=== PATIENT | male | born 1945 | race Caucasian/White ===

== ENCOUNTER 2018-04-29 19:33 | Inpatient (IN) | payer MEDICARE, MEDICAID ==
[~2018-04-29] VITALS: Ht 167.6 cm; Wt 81.8 kg
[~2018-04-29 19:33] MED LIST: AMLO5TAB4 PO; ASPI-1265 PO; ATOR10TA87 PO; GABA-530 PO; LOSA1TAB41 PO; METF1000 PO; METO25TA6 PO; PIOG45TA5 PO
[2018-04-29] MEDS ORDERED: benzonatate 100mg capsule PO ONE (20:20)
[2018-04-29 20:36] LABS: BASOPHILS % (AUTO) 0.4 % (0-1); EOSINOPHILS # (AUTO) 0.2 X10'3 (0-0.9); EOSINOPHILS % (AUTO) 3.1 % (0-6); HEMATOCRIT 34.1 % (42.0-52.0); HEMOGLOBIN 11.1 g/dl (14.0-17.9); LYMPHOCYTES % (AUTO) 15.4 % (21-51); MEAN CORPUSCULAR HGB CONC 32.7 % (33.0-36.5); MEAN CORPUSCULAR VOLUME 88.7 FL (78-98); MEAN PLATELET VOLUME 6.7 FL (7.4-10.4); MONOCYTES # (AUTO) 0.7 X10'3 (0-0.9); MONOCYTES % (AUTO) 10.5 % (2-12); NEUTROPHILS # (AUTO) 4.4 X10'3 (1.8-7.7); NEUTROPHILS % (AUTO) 70.6 % (42-75); PLATELET COUNT 235 X10'3 (140-440); RED BLOOD COUNT 3.84 X10'6 (4.70-6.10); RED CELL DISTRIBUTION WIDTH 15.2 % (11.5-14.5); WHITE BLOOD COUNT 6.2 X10'3 (4.5-11.0)
[2018-04-29 20:51] LABS: ALBUMIN 2.2 G/DL (3.4-5.0); ANION GAP 8 (8-16); BILIRUBIN,TOTAL 0.2 MG/DL (0.1-1.0); BLOOD UREA NITROGEN 35 MG/DL (7-18); BUN/CREATININE RATIO 14.8 (5.4-32.0); CALCIUM 8.1 MG/DL (8.5-10.1); CHLORIDE 106 MMOL/L (99-107); CREATININE 2.36 MG/DL (0.60-1.10); GLUCOSE 146 MG/DL (70-104); POTASSIUM 4.4 MMOL/L (3.5-5.1); SODIUM 138 MMOL/L (135-145); TOTAL PROTEIN 5.7 G/DL (6.4-8.2); eGFR 27 ML/MIN
[2018-04-29 20:52] LABS: ALANINE AMINOTRANSFERASE 21 U/L (12-78); ALBUMIN/GLOBULIN RATIO 0.6 (1.1-1.5); ALKALINE PHOSPHATASE 133 IU/L (46-116); ASPARTATE AMINO TRANSFERASE 17 U/L (10-37)
[2018-04-29 20:55] LABS: D-DIMER 1.44 MG/L FEU (0-0.50); INR 0.9 INR; PARTIAL THROMBOPLASTIN TIME 27 SECONDS (22-32); PROTHROMBIN TIME 9.5 SECONDS (9.0-12.0)
[2018-04-29] MEDS ORDERED: normal saline 1000ml 1,000 ML IV ONE (21:00)
[2018-04-29] MEDS ORDERED: furosemide 10 MG/1 ML 10ml inj IV ONE (21:05)
[2018-04-29] MEDS ORDERED: nitroGLYCERIN-Tridil 50MG/D5W 250 ML IV ONE (21:40)
[2018-04-29] MEDS ORDERED: normal saline 1000ml 1,000 ML IV SCH (22:36)
[2018-04-29] MEDS ORDERED: HYDROcodone/acetaminophen 5mg/325mg tablet PO PRN (22:40)
[2018-04-29] MEDS ORDERED: acetaminophen 650mg rectal suppository RC PRN (22:40)
[2018-04-29] MEDS ORDERED: mag hydrox/Alum hydrox/simeth 30ml oral suspension PO PRN (22:40)
[2018-04-29] MEDS ORDERED: acetaminophen 325mg tablet PO PRN ×2 (22:40)
[2018-04-29] MEDS ORDERED: ondansetron/PF 4mg/2ml inj IV PRN (22:40)
[2018-04-29] MEDS ORDERED: bisacodyl 10mg suppository rectal RC PRN (22:40)
[2018-04-29] MEDS ORDERED: magnesium hydroxide 30ml (MOM) UD suspension PO PRN (22:40)
[2018-04-29] MEDS ORDERED: metoclopramide 5 mg/ml inj IV PRN (22:40)
[2018-04-29] MEDS ORDERED: diphenhydrAMINE 50 mg/ml inj IV PRN (22:40)
[2018-04-29] MEDS ORDERED: morphine 2 MG/ML inj. syringe IV PRN ×2 (22:40)
[2018-04-29] MEDS ORDERED: diphenhydrAMINE 25mg capsule PO PRN (22:40)
[2018-04-29] MEDS ORDERED: dextrose ORAL solution 15 GM/59 ML bottle PO PRN ×2 (22:45)
[2018-04-29] MEDS ORDERED: glucagon, human recombinant 1mg kit SUBCUT PRN (22:45)
[2018-04-29] MEDS ORDERED: nitroGLYCERIN-Tridil 50MG/D5W 250 ML IV SCH (22:45)
[2018-04-29] MEDS ORDERED: dextrose 50%-water 50ml dispensing syringe IV PRN ×2 (22:45)
[2018-04-29] MEDS ORDERED: insulin Lispro (HumaLOG) vial - multi-dose SQ SCH (22:45)
[2018-04-29] MEDS ORDERED: MESSAGE TO PHARMACY PO ONE (22:45)
[2018-04-29 23:08] LABS: LIPASE 267 U/L (73-393); MAGNESIUM 1.9 MG/DL (1.5-2.4); PHOSPHORUS 4.1 MG/DL (2.3-4.5)
[2018-04-29] MEDS: HYDROcodone/acetaminophen 10/325mg tab PO PRN (23:59)
[2018-04-30] VITALS (8 sets, daily range): BP systolic 101–169; BP diastolic 77–121
[2018-04-30] MEDS: temazepam 15mg capsule PO PRN ×2 (00:46→21:18)
[2018-04-30 02:34] LABS: BASOPHILS % (AUTO) 0.7 % (0-1); EOSINOPHILS # (AUTO) 0.2 X10'3 (0-0.9); EOSINOPHILS % (AUTO) 2.8 % (0-6); HEMATOCRIT 29.8 % (42.0-52.0); HEMOGLOBIN 9.9 g/dl (14.0-17.9); LYMPHOCYTES # (AUTO) 1.3 X10'3 (1.1-4.8); LYMPHOCYTES % (AUTO) 18.1 % (21-51); MEAN CORPUSCULAR HEMOGLOBIN 29.2 PG (27.0-31.0); MEAN CORPUSCULAR HGB CONC 33.2 % (33.0-36.5); MEAN PLATELET VOLUME 6.7 FL (7.4-10.4); MONOCYTES # (AUTO) 0.8 X10'3 (0-0.9); MONOCYTES % (AUTO) 11.3 % (2-12); NEUTROPHILS # (AUTO) 4.6 X10'3 (1.8-7.7); NEUTROPHILS % (AUTO) 67.1 % (42-75); PLATELET COUNT 225 X10'3 (140-440); RED BLOOD COUNT 3.39 X10'6 (4.70-6.10); RED CELL DISTRIBUTION WIDTH 14.6 % (11.5-14.5); WHITE BLOOD COUNT 6.9 X10'3 (4.5-11.0)
[2018-04-30 02:50] LABS: ALANINE AMINOTRANSFERASE 19 U/L (12-78); ALBUMIN/GLOBULIN RATIO 0.6 (1.1-1.5); ALKALINE PHOSPHATASE 112 IU/L (46-116); ANION GAP 11 (8-16); ASPARTATE AMINO TRANSFERASE 16 U/L (10-37); BILIRUBIN,TOTAL 0.2 MG/DL (0.1-1.0); BLOOD UREA NITROGEN 35 MG/DL (7-18); BUN/CREATININE RATIO 14.5 (5.4-32.0); CALCIUM 7.9 MG/DL (8.5-10.1); CHLORIDE 107 MMOL/L (99-107); CREATININE 2.42 MG/DL (0.60-1.10); GLUCOSE 140 MG/DL (70-104); SODIUM 140 MMOL/L (135-145); TOTAL CARBON DIOXIDE 21.8 MMOL/L (24-32); TOTAL PROTEIN 5.1 G/DL (6.4-8.2); eGFR 27 ML/MIN
[2018-04-30 02:54] LABS: CHOL/HDL RATIO 3.4 (0.00-4.99); CHOLESTEROL 202 MG/DL (0-200); HDL CHOLESTEROL 60 MG/DL (35-60); LDL CHOLESTEROL 123 MG/DL (50-100); TRIGLYCERIDES 91 MG/DL (20-135)
[2018-04-30] MEDS: HYDROcodone/acetaminophen 10/325mg tab PO PRN (07:48)
[2018-04-30] MEDS: docusate sod 100mg capsule PO SCH ×2 (07:50→20:00)
[2018-04-30] MEDS ORDERED: furosemide 10 MG/1 ML 10ml inj IV SCH (08:00)
[2018-04-30] MEDS ORDERED: enoxaparin 40mg/0.4ml syringe SQ SCH (08:00)
[2018-04-30] MEDS ORDERED: potassium Cl 20 mEq SR tablet PO PRN ×2 (10:25)
[2018-04-30] MEDS ORDERED: magnesium 4gm in 100ml NS 100 ML IV PRN (10:25)
[2018-04-30] MEDS ORDERED: magnesium Cl slow-release 64mg tablet PO PRN (10:25)
[2018-04-30] MEDS ORDERED: potassium Cl 40MEQ/NS 500ml 500 ML IV PRN ×2 (10:25)
[2018-04-30] MEDS ORDERED: hydrALAZINE 20mg/ml inj. IV PRN (11:00)
[2018-04-30] MEDS: losartan 50mg tablet PO SCH (11:06)
[2018-04-30] MEDS: amLODIPine 5mg tablet PO SCH (11:06)
[2018-04-30] MEDS: HYDROchlorothiazide 12.5mg capsule PO SCH (11:06)
[2018-04-30] MEDS: aspirin 81mg tab.chew PO SCH (11:06)
[2018-04-30] MEDS: metoprolol tartrate 25mg tablet PO SCH (11:08)
[2018-04-30 12:45] LABS: URINE AMPHETAMINE SCREEN NEGATIVE (Neg); URINE BARBITUATE SCREEN NEGATIVE (Neg); URINE BENZODIAZEPINES SCREEN NEGATIVE (Neg); URINE CANNABINOID SCREEN NEGATIVE (Neg); URINE COCAINE SCREEN NEGATIVE (Neg); URINE METHADONE SCREEN NEGATIVE (Neg); URINE OPIATE SCREEN POSITIVE (Neg); URINE PHENCYCLIDINE SCREEN NEGATIVE (Neg)
[2018-04-30] MEDS ORDERED: gabapentin 100mg capsule PO SCH (21:00)
[2018-04-30] MEDS ORDERED: famotidine 20mg tablet PO SCH (21:00)
[2018-04-30] MEDS: furosemide 10 MG/1 ML 10ml inj IV SCH (21:17)
[2018-04-30] MEDS: heparin, porcine 5000 units/ml vial SQ SCH (21:17)
[2018-05-01 02:00] VITALS: BP 114/70
[2018-05-01 06:00] VITALS: BP 134/80
[2018-05-01 06:08] LABS: BASOPHILS % (AUTO) 0.7 % (0-1); EOSINOPHILS # (AUTO) 0.3 X10'3 (0-0.9); EOSINOPHILS % (AUTO) 4.4 % (0-6); HEMATOCRIT 32.8 % (42.0-52.0); HEMOGLOBIN 10.8 g/dl (14.0-17.9); LYMPHOCYTES # (AUTO) 1.1 X10'3 (1.1-4.8); LYMPHOCYTES % (AUTO) 18.7 % (21-51); MEAN CORPUSCULAR HGB CONC 32.9 % (33.0-36.5); MEAN CORPUSCULAR VOLUME 88.3 FL (78-98); MEAN PLATELET VOLUME 7.1 FL (7.4-10.4); MONOCYTES # (AUTO) 0.6 X10'3 (0-0.9); MONOCYTES % (AUTO) 10.6 % (2-12); NEUTROPHILS # (AUTO) 3.8 X10'3 (1.8-7.7); NEUTROPHILS % (AUTO) 65.6 % (42-75); PLATELET COUNT 220 X10'3 (140-440); RED BLOOD COUNT 3.71 X10'6 (4.70-6.10); WHITE BLOOD COUNT 5.8 X10'3 (4.5-11.0)
[2018-05-01 07:03] LABS: ALANINE AMINOTRANSFERASE 20 U/L (12-78); ALBUMIN 2.2 G/DL (3.4-5.0); ALBUMIN/GLOBULIN RATIO 0.6 (1.1-1.5); ALKALINE PHOSPHATASE 120 IU/L (46-116); ANION GAP 10 (8-16); ASPARTATE AMINO TRANSFERASE 15 U/L (10-37); BILIRUBIN,TOTAL 0.3 MG/DL (0.1-1.0); BLOOD UREA NITROGEN 36 MG/DL (7-18); BUN/CREATININE RATIO 13.2 (5.4-32.0); CALCIUM 8.2 MG/DL (8.5-10.1); CHLORIDE 108 MMOL/L (99-107); CREATININE 2.72 MG/DL (0.60-1.10); GLUCOSE 120 MG/DL (70-104); MAGNESIUM 1.8 MG/DL (1.5-2.4); PHOSPHORUS 4.8 MG/DL (2.3-4.5); POTASSIUM 4.1 MMOL/L (3.5-5.1); SODIUM 140 MMOL/L (135-145); TOTAL CARBON DIOXIDE 21.6 MMOL/L (24-32); TOTAL PROTEIN 5.6 G/DL (6.4-8.2); eGFR 23 ML/MIN
[2018-05-01] MEDS: HYDROchlorothiazide 12.5mg capsule PO SCH (07:37)
[2018-05-01] MEDS: metoprolol tartrate 25mg tablet PO SCH (07:37)
[2018-05-01] MEDS: aspirin 81mg tab.chew PO SCH (07:37)
[2018-05-01] MEDS: docusate sod 100mg capsule PO SCH (07:38)
[2018-05-01] MEDS: amLODIPine 5mg tablet PO SCH (07:38)
[2018-05-01] MEDS: losartan 50mg tablet PO SCH (07:38)
[2018-05-01] MEDS: heparin, porcine 5000 units/ml vial SQ SCH (07:40)
[2018-05-01] MEDS: furosemide 10 MG/1 ML 10ml inj IV SCH (07:40)
[2018-05-01] MEDS ORDERED: atorvastatin 10mg tablet PO SCH (08:00)
[2018-05-01 11:00] VITALS: BP 128/77
[2018-05-01] MEDS ORDERED: ATOR10TA87 PO (13:27)
[2018-05-01] MEDS ORDERED: PIOG45TA5 PO (13:27)
[2018-05-01] MEDS ORDERED: ASPI-1265 PO (13:27)
[2018-05-01] MEDS ORDERED: FURO40TA4 PO (13:27)
[2018-05-01] MEDS ORDERED: GABA-530 PO (13:27)
[2018-05-01] MEDS ORDERED: METO25TA6 PO (13:27)
[2018-05-01] MEDS ORDERED: LOSA1TAB41 PO (13:27)
== END 2018-05-01 15:45 | disposition home or self-care (01) | DRG 280 ==
LOC: ER 19:34 → PCU 3S 22:36 → CMPBEDREQ 23:40
PROVIDERS: ADMIT Family Medicine; ATTEND Internal Medicine
PROC: CB121ZZ Planar Nuclear Medicine Imaging of Lungs and Bronchi using Technetium 99m (Tc-99m) (ICD-10-PCS; principal; 2018-04-30)
DX: I13.0 Hypertensive heart and chronic kidney disease with heart failure and stage 1 through stage 4 chronic kidney disease, or unspecified chronic kidney disease (principal); I21.A1 Myocardial infarction type 2; I50.33 Acute on chronic diastolic (congestive) heart failure; E43 Unspecified severe protein-calorie malnutrition; I16.1 Hypertensive emergency; N17.9 Acute kidney failure, unspecified; D63.1 Anemia in chronic kidney disease; E11.22 Type 2 diabetes mellitus with diabetic chronic kidney disease; E11.319 Type 2 diabetes mellitus with unspecified diabetic retinopathy without macular edema; E78.00 Pure hypercholesterolemia, unspecified; N40.0 Benign prostatic hyperplasia without lower urinary tract symptoms; E78.5 Hyperlipidemia, unspecified; N18.3 Chronic kidney disease, stage 3 (moderate); R79.1 Abnormal coagulation profile; F32.9 Major depressive disorder, single episode, unspecified; G89.29 Other chronic pain; M19.90 Unspecified osteoarthritis, unspecified site; Z59.0 Homelessness; Z91.19 Patient's noncompliance with other medical treatment and regimen; Z28.21 Immunization not carried out because of patient refusal; Z79.899 Other long term (current) drug therapy; Z79.84 Long term (current) use of oral hypoglycemic drugs; Z79.82 Long term (current) use of aspirin; Z87.891 Personal history of nicotine dependence; Z87.01 Personal history of pneumonia (recurrent); Z68.29 Body mass index [BMI] 29.0-29.9, adult
CPT/HCPCS: 36415; 71045; 71250; 78582; 80053; 80061; 80305; 82948; 83036; 83690; 83735; 83880; 84100; 84484; 85025; 85379; 85610; 85730; 87070; 93005; 93306; 96374; 99285; A9539; A9540; G0378; J0360; J1644; J1650; J1940; J3490; J7030

== ENCOUNTER 2018-05-28 13:30 | Inpatient (IN) | payer MEDICARE, MEDICAID ==
[~2018-05-28] VITALS: Ht 167.6 cm; Wt 93.1 kg
[~2018-05-28 13:30] MED LIST changes: -AMLO5TAB4 PO; +FURO40TA4 PO; -METF1000 PO
[2018-05-28 14:42] LABS: BASOPHILS % (AUTO) 0.6 % (0-1); EOSINOPHILS # (AUTO) 0.2 X10'3 (0-0.9); EOSINOPHILS % (AUTO) 2.6 % (0-6); HEMATOCRIT 30.5 % (42.0-52.0); LYMPHOCYTES # (AUTO) 0.9 X10'3 (1.1-4.8); LYMPHOCYTES % (AUTO) 10.5 % (21-51); MEAN CORPUSCULAR HEMOGLOBIN 29.5 PG (27.0-31.0); MEAN CORPUSCULAR HGB CONC 32.9 % (33.0-36.5); MEAN CORPUSCULAR VOLUME 89.8 FL (78-98); MEAN PLATELET VOLUME 7.4 FL (7.4-10.4); MONOCYTES # (AUTO) 0.8 X10'3 (0-0.9); MONOCYTES % (AUTO) 9.9 % (2-12); NEUTROPHILS # (AUTO) 6.5 X10'3 (1.8-7.7); NEUTROPHILS % (AUTO) 76.4 % (42-75); PLATELET COUNT 234 X10'3 (140-440); RED CELL DISTRIBUTION WIDTH 14.7 % (11.5-14.5); WHITE BLOOD COUNT 8.5 X10'3 (4.5-11.0)
[2018-05-28 14:59] LABS: PARTIAL THROMBOPLASTIN TIME 28 SECONDS (22-32)
[2018-05-28 15:01] LABS: ALANINE AMINOTRANSFERASE 27 U/L (12-78); ALBUMIN 2.8 G/DL (3.4-5.0); ALBUMIN/GLOBULIN RATIO 0.8 (1.1-1.5); ALKALINE PHOSPHATASE 94 IU/L (46-116); ANION GAP 12 (8-16); ASPARTATE AMINO TRANSFERASE 24 U/L (10-37); BILIRUBIN,TOTAL 0.2 MG/DL (0.1-1.0); BLOOD UREA NITROGEN 95 MG/DL (7-18); BUN/CREATININE RATIO 29.9 (5.4-32.0); CALCIUM 7.9 MG/DL (8.5-10.1); CHLORIDE 104 MMOL/L (99-107); CREATININE 3.18 MG/DL (0.60-1.10); GLUCOSE 84 MG/DL (70-104); POTASSIUM 4.5 MMOL/L (3.5-5.1); SODIUM 138 MMOL/L (135-145); TOTAL PROTEIN 6.5 G/DL (6.4-8.2); eGFR 19 ML/MIN
[2018-05-28] MEDS ORDERED: potassium Cl 20 mEq SR tablet PO PRN ×2 (16:15)
[2018-05-28] MEDS ORDERED: magnesium 4gm in 100ml NS 100 ML IV PRN (16:15)
[2018-05-28] MEDS ORDERED: potassium Cl 40MEQ/NS 500ml 500 ML IV PRN ×2 (16:15)
[2018-05-28] MEDS ORDERED: magnesium Cl slow-release 64mg tablet PO PRN (16:15)
[2018-05-28] MEDS ORDERED: ondansetron/PF 4mg/2ml inj IV PRN (16:15)
--- NOTE | 2018-05-28 16:30 | NUR ---
MEAL TRAY ORDERED
--- NOTE | 2018-05-28 16:45 | NUR ---
ECHO IS AT BEDSIDE.
--- NOTE | 2018-05-28 17:32 | NUR ---
SNACK GIVEN TO PATIENT
--- NOTE | 2018-05-28 18:36 | NUR ---
pt to restroom
[2018-05-28 19:20] VITALS: BP 158/77
--- NOTE | 2018-05-28 19:20 | NUR ---
pt arrived to floor via gurney and ambulated to bed with a steady gate. VSS, pt oriented to room and call light. 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
[2018-05-28] MEDS: heparin, porcine 5000 units/ml vial SQ SCH (21:22)
[2018-05-28 22:00] VITALS: BP 159/82
[2018-05-29 02:00] VITALS: BP 153/85
[2018-05-29 05:27] LABS: ALBUMIN 2.4 G/DL (3.4-5.0); ANION GAP 11 (8-16); BLOOD UREA NITROGEN 88 MG/DL (7-18); BUN/CREATININE RATIO 28.9 (5.4-32.0); CALCIUM 7.8 MG/DL (8.5-10.1); CHLORIDE 107 MMOL/L (99-107); CREATININE 3.04 MG/DL (0.60-1.10); GLUCOSE 88 MG/DL (70-104); MAGNESIUM 2.3 MG/DL (1.5-2.4); POTASSIUM 4.2 MMOL/L (3.5-5.1); SODIUM 141 MMOL/L (135-145); TOTAL CARBON DIOXIDE 22.8 MMOL/L (24-32); eGFR 20 ML/MIN
[2018-05-29 05:39] LABS: BASOPHILS # (AUTO) 0.1 X10'3 (0-0.2); BASOPHILS % (AUTO) 0.8 % (0-1); EOSINOPHILS # (AUTO) 0.3 X10'3 (0-0.9); EOSINOPHILS % (AUTO) 4.3 % (0-6); HEMATOCRIT 28.1 % (42.0-52.0); HEMOGLOBIN 9.1 g/dl (14.0-17.9); LYMPHOCYTES # (AUTO) 1.1 X10'3 (1.1-4.8); LYMPHOCYTES % (AUTO) 15.9 % (21-51); MEAN CORPUSCULAR HEMOGLOBIN 29.3 PG (27.0-31.0); MEAN CORPUSCULAR HGB CONC 32.5 % (33.0-36.5); MEAN PLATELET VOLUME 7.6 FL (7.4-10.4); MONOCYTES # (AUTO) 0.8 X10'3 (0-0.9); MONOCYTES % (AUTO) 12.4 % (2-12); NEUTROPHILS # (AUTO) 4.5 X10'3 (1.8-7.7); NEUTROPHILS % (AUTO) 66.6 % (42-75); PLATELET COUNT 221 X10'3 (140-440); RED BLOOD COUNT 3.12 X10'6 (4.70-6.10); RED CELL DISTRIBUTION WIDTH 14.3 % (11.5-14.5); WHITE BLOOD COUNT 6.8 X10'3 (4.5-11.0)
[2018-05-29 06:00] VITALS: BP 159/82
--- NOTE | 2018-05-29 06:42 | NUR ---
Problems reprioritized. Patient report given, questions answered & plan of care reviewed with Deborah PITTMAN.
--- NOTE | 2018-05-29 06:49 | NUR ---
Patient in room PCU 3028. I have received report from Jovan PITTMAN and had the opportunity to ask questions and assume patient care.
[2018-05-29] MEDS ORDERED: ASPI-1265 PO ×2 (07:49→08:12)
[2018-05-29] MEDS ORDERED: LOSA1TAB41 PO ×2 (07:50→08:15)
[2018-05-29] MEDS ORDERED: ATOR10TA87 PO ×2 (07:50→08:13)
[2018-05-29] MEDS ORDERED: GABA-530 PO ×2 (07:50→08:14)
[2018-05-29] MEDS ORDERED: METO25TA6 PO ×2 (07:50→08:16)
[2018-05-29] MEDS ORDERED: PIOG45TA5 PO ×2 (07:50→08:17)
[2018-05-29] MEDS: K and/or MAG REPLACEMENT MC SCH (08:00)
[2018-05-29] MEDS: heparin, porcine 5000 units/ml vial SQ SCH ×2 (08:51→20:12)
[2018-05-29] MEDS: metoprolol tartrate 25mg tablet PO SCH (10:06)
[2018-05-29] MEDS: acetaminophen 325mg tablet PO PRN ×2 (10:07→16:22)
[2018-05-29 11:00] VITALS: BP 122/65
[2018-05-29] MEDS: furosemide 20 MG/2 ML vial IV SCH ×2 (13:51→16:21)
[2018-05-29] MEDS: HYDROchlorothiazide 12.5mg capsule PO SCH (13:51)
[2018-05-29] MEDS: losartan 50mg tablet PO SCH (13:52)
[2018-05-29 15:00] VITALS: BP 144/77
--- NOTE | 2018-05-29 18:25 | NUR ---
Problems reprioritized. Patient report given, questions answered & plan of care reviewed with Sunita PITTMAN.
[2018-05-29 19:00] VITALS: BP 135/75
[2018-05-29] MEDS ORDERED: gabapentin 100mg capsule PO SCH (21:00)
[2018-05-29 23:00] VITALS: BP 137/79
[2018-05-30] MEDS: furosemide 20 MG/2 ML vial IV SCH ×2 (00:30→07:33)
[2018-05-30] MEDS: acetaminophen 325mg tablet PO PRN (01:19)
[2018-05-30 02:00] VITALS: BP 157/81
[2018-05-30 06:05] LABS: GLUCOSE 136 MG/DL (70-104); POTASSIUM 4.1 MMOL/L (3.5-5.1); SODIUM 140 MMOL/L (135-145)
[2018-05-30 06:06] LABS: ALBUMIN 2.3 G/DL (3.4-5.0); ANION GAP 10 (8-16); BLOOD UREA NITROGEN 82 MG/DL (7-18); BUN/CREATININE RATIO 28.3 (5.4-32.0); CHLORIDE 106 MMOL/L (99-107); MAGNESIUM 2.3 MG/DL (1.5-2.4); TOTAL CARBON DIOXIDE 24.2 MMOL/L (24-32); eGFR 22 ML/MIN
[2018-05-30 06:18] LABS: BASOPHILS # (AUTO) 0.1 X10'3 (0-0.2); BASOPHILS % (AUTO) 1.1 % (0-1); EOSINOPHILS # (AUTO) 0.3 X10'3 (0-0.9); EOSINOPHILS % (AUTO) 5.3 % (0-6); HEMATOCRIT 28.7 % (42.0-52.0); HEMOGLOBIN 9.3 g/dl (14.0-17.9); LYMPHOCYTES % (AUTO) 18.4 % (21-51); MEAN CORPUSCULAR HGB CONC 32.5 % (33.0-36.5); MEAN CORPUSCULAR VOLUME 89.2 FL (78-98); MEAN PLATELET VOLUME 7.4 FL (7.4-10.4); MONOCYTES # (AUTO) 0.6 X10'3 (0-0.9); MONOCYTES % (AUTO) 11.7 % (2-12); NEUTROPHILS # (AUTO) 3.5 X10'3 (1.8-7.7); NEUTROPHILS % (AUTO) 63.5 % (42-75); PLATELET COUNT 232 X10'3 (140-440); RED BLOOD COUNT 3.22 X10'6 (4.70-6.10); RED CELL DISTRIBUTION WIDTH 14.6 % (11.5-14.5); WHITE BLOOD COUNT 5.5 X10'3 (4.5-11.0)
--- NOTE | 2018-05-30 07:04 | NUR ---
Patient in room PCU 3028. I have received report from Onel PITTMAN and had the opportunity to ask questions and assume patient care patient awake watching TV.
[2018-05-30 07:16] VITALS: BP 120/61
[2018-05-30] MEDS: losartan 50mg tablet PO SCH (07:31)
[2018-05-30 07:32] VITALS: BP_SYST 120
[2018-05-30] MEDS: metoprolol tartrate 25mg tablet PO SCH (07:32)
[2018-05-30] MEDS: HYDROchlorothiazide 12.5mg capsule PO SCH (07:32)
[2018-05-30] MEDS: heparin, porcine 5000 units/ml vial SQ SCH (07:33)
[2018-05-30] MEDS ORDERED: atorvastatin 10mg tablet PO SCH (08:00)
[2018-05-30] MEDS ORDERED: aspirin 81mg tab.chew PO SCH (08:00)
[2018-05-30] MEDS: K and/or MAG REPLACEMENT MC SCH (08:00)
[2018-05-30] MEDS ORDERED: non-formulary drug (Losartan/Hydrochlorothiazide (Losartan-Hctz 100-12.5 Mg Tab) 1 TAB) PO SCH (08:00)
[2018-05-30] MEDS ORDERED: FURO-150 PO (10:16)
--- NOTE | 2018-05-30 11:56 | NUR ---
Patients discharge instructions reviewed with patient and patient verbalized understanding. Patients Medications were called into [facility]. Patients Tele dc'd for discharge and patients IV dc'd cannula intact. Patient states he has all his belongings. Patient requested us to call [employer] for him ( patient Pay), Patient was taken to the hospital lobby to wait for taxi to take him to the [facility].
== END 2018-05-30 11:35 | disposition home or self-care (01) | DRG 682 ==
LOC: ER 13:30 → ED HOLD 16:14 → PCU 3S 19:20
PROVIDERS: ADMIT Internal Medicine; ATTEND Internal Medicine
DX: N17.9 Acute kidney failure, unspecified (principal); I50.43 Acute on chronic combined systolic (congestive) and diastolic (congestive) heart failure; I13.0 Hypertensive heart and chronic kidney disease with heart failure and stage 1 through stage 4 chronic kidney disease, or unspecified chronic kidney disease; N18.4 Chronic kidney disease, stage 4 (severe); E78.5 Hyperlipidemia, unspecified; E78.00 Pure hypercholesterolemia, unspecified; E11.22 Type 2 diabetes mellitus with diabetic chronic kidney disease; N40.0 Benign prostatic hyperplasia without lower urinary tract symptoms; E11.42 Type 2 diabetes mellitus with diabetic polyneuropathy; F32.9 Major depressive disorder, single episode, unspecified; G89.29 Other chronic pain; M19.90 Unspecified osteoarthritis, unspecified site; Z66 Do not resuscitate; Z59.0 Homelessness; Z90.49 Acquired absence of other specified parts of digestive tract; Z79.899 Other long term (current) drug therapy; Z79.82 Long term (current) use of aspirin; Z87.891 Personal history of nicotine dependence
CPT/HCPCS: 36415; 71045; 80048; 80053; 82948; 83735; 83880; 84484; 85025; 85610; 85730; 87070; 93005; 93308; 99285; G0378; J1644; J1940

== ENCOUNTER 2018-07-21 12:52 | Emergency (ER) | payer MEDICARE, MEDICAID ==
[~2018-07-21] VITALS: Ht 167.6 cm; Wt 96.8 kg
[~2018-07-21 12:52] MED LIST changes: -FURO40TA4 PO; -PIOG45TA5 PO
[2018-07-21 18:46] LABS: BASOPHILS # (AUTO) 0.1 X10'3 (0-0.2); BASOPHILS % (AUTO) 1.3 % (0-1); EOSINOPHILS # (AUTO) 0.2 X10'3 (0-0.9); EOSINOPHILS % (AUTO) 3.3 % (0-6); HEMATOCRIT 30.8 % (42.0-52.0); HEMOGLOBIN 10.3 g/dl (14.0-17.9); LYMPHOCYTES # (AUTO) 1.1 X10'3 (1.1-4.8); LYMPHOCYTES % (AUTO) 15.9 % (21-51); MEAN CORPUSCULAR HEMOGLOBIN 30.1 PG (27.0-31.0); MEAN CORPUSCULAR HGB CONC 33.3 g/dL (33.0-36.5); MEAN CORPUSCULAR VOLUME 90.3 FL (78-98); MEAN PLATELET VOLUME 7.1 FL (7.4-10.4); MONOCYTES # (AUTO) 0.8 X10'3 (0-0.9); MONOCYTES % (AUTO) 11.5 % (2-12); NEUTROPHILS # (AUTO) 4.5 X10'3 (1.8-7.7); PLATELET COUNT 236 X10'3 (140-440); RED BLOOD COUNT 3.41 X10'6 (4.70-6.10); RED CELL DISTRIBUTION WIDTH 13.3 % (11.5-14.5); WHITE BLOOD COUNT 6.7 X10'3 (4.5-11.0)
[2018-07-21 18:50] VITALS: BP 170/88
[2018-07-21 18:58] LABS: ALANINE AMINOTRANSFERASE 19 U/L (12-78); ALBUMIN/GLOBULIN RATIO 0.8 (1.1-1.5); ALKALINE PHOSPHATASE 135 IU/L (46-116); ANION GAP 11 (8-16); ASPARTATE AMINO TRANSFERASE 19 U/L (10-37); BILIRUBIN,TOTAL 0.3 MG/DL (0.1-1.0); BLOOD UREA NITROGEN 66 MG/DL (7-18); BUN/CREATININE RATIO 20.9 (5.4-32.0); CALCIUM 8.7 MG/DL (8.5-10.1); CHLORIDE 104 MMOL/L (99-107); CREATININE 3.16 MG/DL (0.60-1.10); GLUCOSE 98 MG/DL (70-104); POTASSIUM 4.9 MMOL/L (3.5-5.1); SODIUM 138 MMOL/L (135-145); TOTAL CARBON DIOXIDE 22.6 MMOL/L (24-32); eGFR 20 ML/MIN
== END 2018-07-21 19:51 | disposition home or self-care (01) ==
LOC: ER 12:52
DX: I12.9 Hypertensive chronic kidney disease with stage 1 through stage 4 chronic kidney disease, or unspecified chronic kidney disease (principal); E11.22 Type 2 diabetes mellitus with diabetic chronic kidney disease; N18.9 Chronic kidney disease, unspecified; Z88.6 Allergy status to analgesic agent; Z59.0 Homelessness
CPT/HCPCS: 36415; 71045; 80053; 82948; 83880; 84484; 85025; 93005; 99284

== ENCOUNTER 2019-10-01 22:33 | Emergency (ER) | payer MEDICARE, MEDICAID ==
[~2019-10-01] VITALS: Ht 167.6 cm; Wt 90.9 kg
[2019-10-01 23:35] LABS: BASOPHILS % (AUTO) 0.7 % (0-1); EOSINOPHILS # (AUTO) 0.1 X10'3 (0-0.9); EOSINOPHILS % (AUTO) 1.8 % (0-6); HEMATOCRIT 26.5 % (42.0-52.0); HEMOGLOBIN 8.7 g/dl (14.0-17.9); LYMPHOCYTES # (AUTO) 1.2 X10'3 (1.1-4.8); LYMPHOCYTES % (AUTO) 20.7 % (21-51); MEAN CORPUSCULAR HEMOGLOBIN 30.1 PG (27.0-31.0); MEAN CORPUSCULAR VOLUME 91.2 FL (78-98); MEAN PLATELET VOLUME 7.3 FL (7.4-10.4); MONOCYTES # (AUTO) 0.8 X10'3 (0-0.9); MONOCYTES % (AUTO) 14.7 % (2-12); NEUTROPHILS # (AUTO) 3.5 X10'3 (1.8-7.7); NEUTROPHILS % (AUTO) 62.1 % (42-75); PLATELET COUNT 217 X10'3 (140-440); RED BLOOD COUNT 2.91 X10'6 (4.70-6.10); RED CELL DISTRIBUTION WIDTH 13.8 % (11.5-14.5); WHITE BLOOD COUNT 5.7 X10'3 (4.5-11.0)
[2019-10-01 23:36] LABS: ALANINE AMINOTRANSFERASE 24 U/L (12-78); ALBUMIN 3.6 G/DL (3.4-5.0); ALBUMIN/GLOBULIN RATIO 0.9 (1.1-1.5); ALKALINE PHOSPHATASE 108 IU/L (46-116); ANION GAP 14 (8-16); ASPARTATE AMINO TRANSFERASE 23 U/L (10-37); BILIRUBIN,TOTAL 0.4 MG/DL (0.1-1.0); CALCIUM 7.4 MG/DL (8.5-10.1); CHLORIDE 96 MMOL/L (99-107); CREATININE 5.03 MG/DL (0.60-1.10); GLUCOSE 163 MG/DL (70-104); LIPASE 426 U/L (73-393); POTASSIUM 4.3 MMOL/L (3.5-5.1); SODIUM 137 MMOL/L (135-145); TOTAL PROTEIN 7.4 G/DL (6.4-8.2); eGFR 11 ML/MIN
[2019-10-01 23:37] LABS: BLOOD UREA NITROGEN 172 MG/DL (7-18); BUN/CREATININE RATIO 34.2 (5.4-32.0)
[2019-10-01 23:43] LABS: CLARITY,URINE CLEAR (Clear); COLOR,URINE YELLOW (Yellow); GLUCOSE, URINE NEGATIVE (Neg); KETONES,URINE NEGATIVE (Neg); LEUKOCYTE ESTERASE ,URINE NEGATIVE (Neg); NITRITES, URINE NEGATIVE (Neg); OCCULT BLOOD,URINE SMALL (Neg); PROTEIN,URINE 100 mg/dl (Neg); UROBILINOGEN,URINE 0.2 E.U/dL (0.2-1.0)
[2019-10-01 23:44] LABS: UA COLLECTION TYPE URINAL
[2019-10-01] MEDS ORDERED: ondansetron 4mg rapidly disintigrating tab PO ONE (23:55)
[2019-10-01] MEDS ORDERED: HYDROcodone/acetaminophen 5mg/325mg tablet PO ONE (23:55)
[2019-10-02 00:01] LABS: BACTERIA,URINE NONE SEEN /HPF (Neg); HYALINE CASTS 0-3 /LPF (NEGATIVE); MUCUS STRANDS FEW /LPF (Neg); RBC,URINE 0-2 /HPF (0-2); SQUAMOUS EPITHELIAL CELL,UR FEW /LPF (FEW); WBC,URINE 0-4 /HPF (0-4)
[2019-10-02] MEDS ORDERED: BISA-78 PO (00:42)
[2019-10-02] MEDS ORDERED: bisacodyl 5mg tablet.DR PO ONE (00:45)
[2019-10-02 01:21] VITALS: BP 144/67
== END 2019-10-02 01:07 | disposition home or self-care (01) ==
LOC: ER 22:33
DX: R10.819 Abdominal tenderness, unspecified site (principal); E78.00 Pure hypercholesterolemia, unspecified; N18.9 Chronic kidney disease, unspecified; E11.22 Type 2 diabetes mellitus with diabetic chronic kidney disease; G89.29 Other chronic pain; F32.9 Major depressive disorder, single episode, unspecified; Z72.89 Other problems related to lifestyle; Z59.0 Homelessness; Z79.82 Long term (current) use of aspirin; Z79.899 Other long term (current) drug therapy
CPT/HCPCS: 36415; 74176; 80053; 81001; 83690; 85025; 99284

== ENCOUNTER 2020-11-24 15:38 | Emergency (ER) | payer MEDICARE, MEDICAID ==
[~2020-11-24] VITALS: Ht 167.6 cm; Wt 81.8 kg
[~2020-11-24 15:38] MED LIST changes: +BISA-78 PO; +LOP25T PO; -METO25TA6 PO
[2020-11-24 17:09] LABS: ALBUMIN 3.1 G/DL (3.4-5.0); ANION GAP 7 (8-16); BASOPHILS # (AUTO) 0.1 X10'3 (0-0.2); BASOPHILS % (AUTO) 1.1 % (0-1); BLOOD UREA NITROGEN 31 MG/DL (7-18); BUN/CREATININE RATIO 8.4 (5.4-32.0); CALCIUM 7.9 MG/DL (8.5-10.1); CHLORIDE 96 MMOL/L (99-107); CREATININE 3.67 MG/DL (0.60-1.10); EOSINOPHILS # (AUTO) 0.3 X10'3 (0-0.9); EOSINOPHILS % (AUTO) 6.2 % (0-6); GLUCOSE 421 MG/DL (70-104); HEMOGLOBIN 11.9 g/dl (14.0-17.9); LYMPHOCYTES # (AUTO) 0.8 X10'3 (1.1-4.8); LYMPHOCYTES % (AUTO) 14.8 % (21-51); MEAN CORPUSCULAR HEMOGLOBIN 31.7 PG (27.0-31.0); MEAN CORPUSCULAR HGB CONC 34.1 g/dL (33.0-36.5); MEAN CORPUSCULAR VOLUME 93.2 FL (78-98); MEAN PLATELET VOLUME 7.9 FL (7.4-10.4); MONOCYTES # (AUTO) 0.5 X10'3 (0-0.9); NEUTROPHILS # (AUTO) 3.6 X10'3 (1.8-7.7); NEUTROPHILS % (AUTO) 67.9 % (42-75); PLATELET COUNT 187 X10'3 (140-440); RED BLOOD COUNT 3.76 X10'6 (4.70-6.10); RED CELL DISTRIBUTION WIDTH 13.1 % (11.5-14.5); SODIUM 133 MMOL/L (135-145); TOTAL CARBON DIOXIDE 30.1 MMOL/L (24-32); WHITE BLOOD COUNT 5.3 X10'3 (4.5-11.0); eGFR 16 ML/MIN
[2020-11-24] MEDS ORDERED: acetaminophen 325mg tablet PO ONE (18:15)
[2020-11-24 18:20] LABS: CLARITY,URINE CLEAR (Clear); COLOR,URINE YELLOW (Yellow); GLUCOSE, URINE >=1000 mg/dl (Neg); KETONES,URINE NEGATIVE (Neg); LEUKOCYTE ESTERASE ,URINE NEGATIVE (Neg); NITRITES, URINE NEGATIVE (Neg); OCCULT BLOOD,URINE TRACE-INTACT (Neg); PH,URINE 7.5 (4.8-8.0); PROTEIN,URINE 100 mg/dl (Neg); UROBILINOGEN,URINE 0.2 E.U/dL (0.2-1.0)
[2020-11-24 18:21] LABS: UA COLLECTION TYPE URINAL
[2020-11-24 18:29] LABS: BACTERIA,URINE NONE SEEN /HPF (Neg); MUCUS STRANDS NONE SEEN /LPF (Neg); RBC,URINE 0-2 /HPF (0-2); SQUAMOUS EPITHELIAL CELL,UR FEW /LPF (FEW); WBC,URINE NONE SEEN /HPF (0-4)
[2020-11-24 20:05] VITALS: BP 157/96
--- NOTE | 2020-11-24 20:22 | NUR ---
patient vitals stable, patient received discharge instructions and acknowledged understanding. patient dc home.
== END 2020-11-24 20:22 | disposition home or self-care (01) ==
LOC: ER 15:38
DX: E11.65 Type 2 diabetes mellitus with hyperglycemia (principal); R53.1 Weakness; E78.00 Pure hypercholesterolemia, unspecified; E11.22 Type 2 diabetes mellitus with diabetic chronic kidney disease; N18.6 End stage renal disease; D63.1 Anemia in chronic kidney disease; M19.90 Unspecified osteoarthritis, unspecified site; G89.29 Other chronic pain; N40.0 Benign prostatic hyperplasia without lower urinary tract symptoms; Z86.718 Personal history of other venous thrombosis and embolism; Z99.2 Dependence on renal dialysis; Z72.89 Other problems related to lifestyle; Z59.0 Homelessness; Z79.82 Long term (current) use of aspirin; Z79.899 Other long term (current) drug therapy
CPT/HCPCS: 36415; 70450; 80048; 81001; 82948; 85025; 85610; 93005; 99285

== ENCOUNTER 2021-01-20 14:08 | Emergency (ER) | payer MEDICARE, MEDICAID ==
[~2021-01-20] VITALS: Ht 167.6 cm; Wt 77.3 kg
[2021-01-20 15:10] VITALS: BP 150/81
[2021-01-20] MEDS ORDERED: ondansetron 4mg rapidly disintigrating tab PO ONE (15:20)
[2021-01-20] MEDS ORDERED: HYDROcodone/acetaminophen 5mg/325mg tablet PO ONE (15:20)
[2021-01-20] MEDS ORDERED: TRAM50TA2 PO (16:49)
[2021-01-20] MEDS ORDERED: ACET-1025 PO (16:49)
== END 2021-01-20 16:30 | disposition home or self-care (01) ==
LOC: ER 14:09
DX: M25.562 Pain in left knee (principal); E78.00 Pure hypercholesterolemia, unspecified; E11.22 Type 2 diabetes mellitus with diabetic chronic kidney disease; N18.9 Chronic kidney disease, unspecified; G89.29 Other chronic pain; F32.9 Major depressive disorder, single episode, unspecified; Z86.2 Personal history of diseases of the blood and blood-forming organs and certain disorders involving the immune mechanism; Z72.89 Other problems related to lifestyle; Z59.0 Homelessness; Z79.82 Long term (current) use of aspirin; Z79.899 Other long term (current) drug therapy
CPT/HCPCS: 73564; 99283

== ENCOUNTER 2021-01-31 17:44 | Emergency (ER) | payer MEDICARE, MEDICAID ==
[~2021-01-31] VITALS: Ht 167.6 cm; Wt 92.0 kg
[2021-01-31] MEDS ORDERED: normal saline 1000ML IV soln IVB ONE (18:10)
[2021-01-31 18:45] LABS: BASOPHILS # (AUTO) 0.1 X10'3 (0-0.2); BASOPHILS % (AUTO) 1.8 % (0-1); EOSINOPHILS # (AUTO) 0.4 X10'3 (0-0.9); EOSINOPHILS % (AUTO) 7.3 % (0-6); HEMATOCRIT 34.7 % (42.0-52.0); HEMOGLOBIN 11.6 g/dl (14.0-17.9); LYMPHOCYTES # (AUTO) 1.1 X10'3 (1.1-4.8); MEAN CORPUSCULAR HEMOGLOBIN 31.2 PG (27.0-31.0); MEAN CORPUSCULAR HGB CONC 33.3 g/dL (33.0-36.5); MEAN CORPUSCULAR VOLUME 93.6 FL (78-98); MEAN PLATELET VOLUME 7.1 FL (7.4-10.4); MONOCYTES # (AUTO) 0.6 X10'3 (0-0.9); MONOCYTES % (AUTO) 11.1 % (2-12); NEUTROPHILS # (AUTO) 3.1 X10'3 (1.8-7.7); NEUTROPHILS % (AUTO) 58.8 % (42-75); PLATELET COUNT 216 X10'3 (140-440); RED CELL DISTRIBUTION WIDTH 13.2 % (11.5-14.5); WHITE BLOOD COUNT 5.3 X10'3 (4.5-11.0)
[2021-01-31 19:01] LABS: ALANINE AMINOTRANSFERASE 17 U/L (12-78); ALBUMIN 2.8 G/DL (3.4-5.0); ALBUMIN/GLOBULIN RATIO 0.8 (1.1-1.5); ALKALINE PHOSPHATASE 148 IU/L (46-116); ANION GAP 2 (8-16); ASPARTATE AMINO TRANSFERASE 11 U/L (10-37); BILIRUBIN,TOTAL 0.3 MG/DL (0.1-1.0); BLOOD UREA NITROGEN 49 MG/DL (7-18); CHLORIDE 97 MMOL/L (99-107); CREATININE 4.09 MG/DL (0.60-1.10); GLUCOSE 323 MG/DL (70-104); POTASSIUM 4.3 MMOL/L (3.5-5.1); SODIUM 129 MMOL/L (135-145); TOTAL CARBON DIOXIDE 30.4 MMOL/L (24-32); TOTAL PROTEIN 6.3 G/DL (6.4-8.2); eGFR 14 ML/MIN
[2021-01-31 21:40] VITALS: BP 130/73
== END 2021-01-31 21:32 | disposition home or self-care (01) ==
LOC: ER 17:45
DX: R42 Dizziness and giddiness (principal); E87.1 Hypo-osmolality and hyponatremia; R53.1 Weakness; R53.83 Other fatigue; R44.1 Visual hallucinations; E78.00 Pure hypercholesterolemia, unspecified; E11.22 Type 2 diabetes mellitus with diabetic chronic kidney disease; N18.9 Chronic kidney disease, unspecified; G89.29 Other chronic pain; F32.9 Major depressive disorder, single episode, unspecified; Z86.2 Personal history of diseases of the blood and blood-forming organs and certain disorders involving the immune mechanism; Z72.89 Other problems related to lifestyle; Z59.0 Homelessness; Z79.82 Long term (current) use of aspirin; Z79.899 Other long term (current) drug therapy
CPT/HCPCS: 36415; 80053; 85025; 99283; J7030

== ENCOUNTER 2021-07-10 17:28 | Emergency (ER) | payer MEDICARE, MEDICAID ==
[~2021-07-10] VITALS: Ht 170.2 cm; Wt 79.5 kg
[2021-07-10 18:07] VITALS: BP 126/63
[2021-07-10] MEDS ORDERED: acetaminophen 325mg tablet PO STA (18:24)
== END 2021-07-10 18:50 | disposition home or self-care (01) ==
LOC: ER 17:29
DX: R07.89 Other chest pain (principal); I13.0 Hypertensive heart and chronic kidney disease with heart failure and stage 1 through stage 4 chronic kidney disease, or unspecified chronic kidney disease; N18.9 Chronic kidney disease, unspecified; E11.9 Type 2 diabetes mellitus without complications; G89.29 Other chronic pain; F32.A Depression, unspecified; Z72.89 Other problems related to lifestyle; Z59.00 Homelessness unspecified; Z86.2 Personal history of diseases of the blood and blood-forming organs and certain disorders involving the immune mechanism; Z79.82 Long term (current) use of aspirin; Z79.899 Other long term (current) drug therapy
CPT/HCPCS: 93005; 99283

== ENCOUNTER 2022-08-07 19:53 | Inpatient (IN) | payer MEDICARE, MEDICAID ==
[~2022-08-07] VITALS: Ht 167.6 cm; Wt 81.8 kg
[2022-08-07] MEDS ORDERED: normal saline 1000ML IV soln IVB ONE (20:00)
[2022-08-07 20:23] LABS: BASOPHILS # (AUTO) 0.1 X10'3 (0-0.2); BASOPHILS % (AUTO) 1.1 % (0-1); EOSINOPHILS # (AUTO) 0.2 X10'3 (0-0.9); EOSINOPHILS % (AUTO) 4.9 % (0-6); HEMATOCRIT 33.6 % (42.0-52.0); HEMOGLOBIN 11.1 g/dl (14.0-17.9); LYMPHOCYTES % (AUTO) 22.5 % (21-51); MEAN CORPUSCULAR HEMOGLOBIN 31.7 PG (27.0-31.0); MEAN CORPUSCULAR HGB CONC 33.1 g/dL (33.0-36.5); MEAN CORPUSCULAR VOLUME 95.9 FL (78-98); MEAN PLATELET VOLUME 6.9 FL (7.4-10.4); MONOCYTES # (AUTO) 0.7 X10'3 (0-0.9); MONOCYTES % (AUTO) 15.2 % (2-12); NEUTROPHILS # (AUTO) 2.6 X10'3 (1.8-7.7); NEUTROPHILS % (AUTO) 56.3 % (42-75); PLATELET COUNT 203 X10'3 (140-440); RED CELL DISTRIBUTION WIDTH 13.4 % (11.5-14.5); WHITE BLOOD COUNT 4.5 X10'3 (4.5-11.0)
[2022-08-07 20:32] LABS: ALANINE AMINOTRANSFERASE 19 U/L (12-78); ALBUMIN 3.8 G/DL (3.4-5.0); ALBUMIN/GLOBULIN RATIO 1.1 (1.1-1.5); ALKALINE PHOSPHATASE 127 IU/L (46-116); ANION GAP 6 (8-16); ASPARTATE AMINO TRANSFERASE 22 U/L (10-37); BILIRUBIN,TOTAL 0.4 MG/DL (0.1-1.0); BLOOD UREA NITROGEN 30 MG/DL (7-18); BUN/CREATININE RATIO 7.1 (5.4-32.0); CALCIUM 8.9 MG/DL (8.5-10.1); CHLORIDE 100 MMOL/L (99-107); GLUCOSE 134 MG/DL (70-104); SODIUM 141 MMOL/L (135-145); TOTAL CARBON DIOXIDE 35.3 MMOL/L (24-32); TOTAL PROTEIN 7.3 G/DL (6.4-8.2); eGFR 14 ML/MIN
[2022-08-07 20:39] LABS: MAGNESIUM 1.9 MG/DL (1.5-2.4)
[2022-08-07 22:19] LABS: COLOR,URINE YELLOW (Yellow); GLUCOSE, URINE 100 mg/dl (Neg); KETONES,URINE NEGATIVE (Neg); LEUKOCYTE ESTERASE ,URINE NEGATIVE (Neg); NITRITES, URINE NEGATIVE (Neg); OCCULT BLOOD,URINE TRACE-INTACT (Neg); PROTEIN,URINE 100 mg/dl (Neg); UROBILINOGEN,URINE 0.2 E.U/dL (0.2-1.0)
[2022-08-07 22:21] LABS: UA COLLECTION TYPE CLN CATCH MIDSTREAM
[2022-08-07 22:22] LABS: CLARITY,URINE SLIGHTLY CLOUDY (Clear)
[2022-08-07 22:30] LABS: WBC,URINE 0-4 /HPF (0-4)
[2022-08-07 22:31] LABS: BACTERIA,URINE FEW /HPF (Neg); MUCUS STRANDS FEW /LPF (Neg); RBC,URINE 0-2 /HPF (0-2); SQUAMOUS EPITHELIAL CELL,UR FEW /LPF (FEW)
[2022-08-07 22:32] LABS: URIC ACID CRYSTALS FEW /HPF (NEGATIVE)
[2022-08-07] MEDS ORDERED: mag hydrox/Alum hydrox/simeth 30ml oral suspension PO PRN (22:50)
[2022-08-07] MEDS ORDERED: ondansetron/PF 4mg/2ml inj IV PRN (22:50)
[2022-08-07] MEDS ORDERED: magnesium hydroxide 30ml (MOM) UD suspension PO PRN (22:50)
[2022-08-07] MEDS ORDERED: acetaminophen 325mg tablet PO PRN (22:50)
[2022-08-07] MEDS ORDERED: PERFLUTREN PROTEIN-A MICROSPHR (Optison) 0.22 MG/ML 3ML VIAL IV PRN (22:50)
[2022-08-07] MEDS ORDERED: insulin Lispro (HumaLOG) vial - multi-dose SQ SCH (22:55)
[2022-08-07] MEDS ORDERED: MESSAGE TO PHARMACY PO ONE (22:55)
[2022-08-07] MEDS ORDERED: dextrose 50%-water 50ml dispensing syringe IV PRN ×2 (22:55)
[2022-08-07] MEDS ORDERED: DEXTROSE 15 GM of carb/4 tabs (each vial/BOTTLE has 4 tablets) PO PRN ×2 (22:55)
[2022-08-07] MEDS ORDERED: glucagon, human recombinant 1mg kit SUBCUT PRN (22:55)
[2022-08-08 04:34] LABS: BASOPHILS # (AUTO) 0.1 X10'3 (0-0.2); BASOPHILS % (AUTO) 1.1 % (0-1); EOSINOPHILS # (AUTO) 0.2 X10'3 (0-0.9); EOSINOPHILS % (AUTO) 4.5 % (0-6); HEMATOCRIT 30.8 % (42.0-52.0); HEMOGLOBIN 10.1 g/dl (14.0-17.9); LYMPHOCYTES # (AUTO) 0.9 X10'3 (1.1-4.8); LYMPHOCYTES % (AUTO) 16.7 % (21-51); MEAN CORPUSCULAR HEMOGLOBIN 31.4 PG (27.0-31.0); MEAN CORPUSCULAR HGB CONC 32.8 g/dL (33.0-36.5); MEAN CORPUSCULAR VOLUME 95.6 FL (78-98); MONOCYTES # (AUTO) 0.7 X10'3 (0-0.9); MONOCYTES % (AUTO) 13.2 % (2-12); NEUTROPHILS # (AUTO) 3.5 X10'3 (1.8-7.7); NEUTROPHILS % (AUTO) 64.5 % (42-75); PLATELET COUNT 182 X10'3 (140-440); RED BLOOD COUNT 3.22 X10'6 (4.70-6.10); RED CELL DISTRIBUTION WIDTH 13.5 % (11.5-14.5); WHITE BLOOD COUNT 5.4 X10'3 (4.5-11.0)
[2022-08-08 04:47] LABS: ALANINE AMINOTRANSFERASE 16 U/L (12-78); ALBUMIN 3.3 G/DL (3.4-5.0); ALKALINE PHOSPHATASE 100 IU/L (46-116); ANION GAP 5 (8-16); ASPARTATE AMINO TRANSFERASE 15 U/L (10-37); BILIRUBIN,TOTAL 0.3 MG/DL (0.1-1.0); BLOOD UREA NITROGEN 30 MG/DL (7-18); CALCIUM 8.5 MG/DL (8.5-10.1); CHLORIDE 103 MMOL/L (99-107); GLUCOSE 120 MG/DL (70-104); POTASSIUM 3.5 MMOL/L (3.5-5.1); SODIUM 143 MMOL/L (135-145); TOTAL CARBON DIOXIDE 34.8 MMOL/L (24-32); TOTAL PROTEIN 6.5 G/DL (6.4-8.2); eGFR 14 ML/MIN
--- NOTE | 2022-08-08 05:38 | NUR ---
PT O2 SATURATION DOWN TO 79% ON RA WHILE ASLEEP. PT WOKEN UP AND PLACED ON 2L O2, SATURATION NOW 93%.
[2022-08-08] MEDS ORDERED: albumin (human) 25% 100ml IV 100 ML IV PRN (08:00)
[2022-08-08] MEDS: docusate sod 100mg capsule PO SCH ×3 (08:00→20:00)
[2022-08-08] MEDS ORDERED: heparin 1,000 units/ml 10ml inj IV ONE (08:00)
[2022-08-08] MEDS ORDERED: heparin 1,000unit/ml 10ml vial 10 ML IV ONE (08:00)
[2022-08-08 10:43] VITALS: BP 148/75
[2022-08-08] MEDS ORDERED: LOSA1TAB41 PO (12:55)
[2022-08-08] MEDS ORDERED: ATOR10TA70 PO (12:55)
[2022-08-08] MEDS ORDERED: SPIR25TA5 PO (12:55)
[2022-08-08] MEDS ORDERED: THIA100T66 PO (12:58)
[2022-08-08] MEDS ORDERED: PIOG45TA65 PO (12:58)
[2022-08-08] MEDS ORDERED: PREG25CA18 PO (12:58)
[2022-08-08] MEDS ORDERED: PHO667C PO (12:58)
[2022-08-08] MEDS ORDERED: PYRI-3 PO (12:58)
[2022-08-08] MEDS ORDERED: FURO80TA3 PO (12:58)
[2022-08-08] MEDS ORDERED: OMEP40CA21 PO (12:58)
[2022-08-08] MEDS ORDERED: METO5TAB98 PO (12:58)
[2022-08-08] MEDS ORDERED: ESCI-8 PO (12:58)
[2022-08-08] MEDS ORDERED: pneumococcal 23-VAL P-sac vacc 25 mcg/0.5ml vial IMVAC ONE (15:00)
[2022-08-08] MEDS: heparin, porcine 5000 units/ml vial SQ SCH ×2 (15:15)
[2022-08-08] MEDS ORDERED: acetaminophen 325mg tablet PO PRN (15:40)
--- NOTE | 2022-08-08 17:29 | NUR ---
pt received dialysis today, 1.8L removed. Pt states he feels about the same as he normally does. ambulates to bathroom stand by assist. encouraged pt to use urinal for accurate urine output. pt refusing insulin at this time, states he doesnt take it at home. will continue to montitor pt
[2022-08-08 18:00] VITALS: BP 141/78
--- NOTE | 2022-08-08 18:20 | NUR ---
Patient in room ORTHO 4007. I have received report from Shania PITTMAN and had the opportunity to ask questions and assume patient care.
--- NOTE | 2022-08-08 19:00 | NUR ---
pt's blood sugar was 202 per day shift nurse but patient refusing to start the DM protocol with insulin so I did not give any insulin to him and he declined it for me as well as her.
[2022-08-08] MEDS: furosemide 40mg tablet PO SCH (19:53)
[2022-08-08] MEDS: pyridoxine 50mg tablet PO SCH (19:54)
[2022-08-08] MEDS: thiamine 100mg tablet PO SCH (19:54)
[2022-08-08 20:00] VITALS: BP_SYST 138; BP_SYST 141; BP_SYST 142; BP_DIAS 74; BP_DIAS 77
[2022-08-08] MEDS ORDERED: atorvastatin 10mg tablet PO SCH (21:00)
[2022-08-08 22:00] VITALS: BP 142/77
--- NOTE | 2022-08-09 02:23 | NUR ---
Forgot to mention patient told me that he gets shots to his eyes monthly or so for vision issues and he has decreased vision especially to the left eye.
[2022-08-09 06:00] VITALS: BP 108/52
--- NOTE | 2022-08-09 06:26 | NUR ---
Problems reprioritized. Patient report given, questions answered & plan of care reviewed with Douglas PITTMAN.
[2022-08-09 06:55] LABS: BASOPHILS # (AUTO) 0.1 X10'3 (0-0.2); BASOPHILS % (AUTO) 1.7 % (0-1); EOSINOPHILS # (AUTO) 0.2 X10'3 (0-0.9); EOSINOPHILS % (AUTO) 5.1 % (0-6); HEMATOCRIT 31.6 % (42.0-52.0); HEMOGLOBIN 10.5 g/dl (14.0-17.9); LYMPHOCYTES # (AUTO) 0.8 X10'3 (1.1-4.8); LYMPHOCYTES % (AUTO) 18.3 % (21-51); MEAN CORPUSCULAR HEMOGLOBIN 31.9 PG (27.0-31.0); MEAN CORPUSCULAR HGB CONC 33.3 g/dL (33.0-36.5); MEAN CORPUSCULAR VOLUME 95.7 FL (78-98); MEAN PLATELET VOLUME 7.1 FL (7.4-10.4); MONOCYTES # (AUTO) 0.6 X10'3 (0-0.9); MONOCYTES % (AUTO) 14.6 % (2-12); NEUTROPHILS # (AUTO) 2.5 X10'3 (1.8-7.7); NEUTROPHILS % (AUTO) 60.3 % (42-75); PLATELET COUNT 195 X10'3 (140-440); RED BLOOD COUNT 3.31 X10'6 (4.70-6.10); RED CELL DISTRIBUTION WIDTH 13.3 % (11.5-14.5); WHITE BLOOD COUNT 4.2 X10'3 (4.5-11.0)
[2022-08-09 07:11] LABS: ALANINE AMINOTRANSFERASE 21 U/L (12-78); ALBUMIN 3.4 G/DL (3.4-5.0); ALBUMIN/GLOBULIN RATIO 1.1 (1.1-1.5); ALKALINE PHOSPHATASE 106 IU/L (46-116); ANION GAP 5 (8-16); ASPARTATE AMINO TRANSFERASE 19 U/L (10-37); BILIRUBIN,TOTAL 0.4 MG/DL (0.1-1.0); BLOOD UREA NITROGEN 28 MG/DL (7-18); BUN/CREATININE RATIO 7.4 (5.4-32.0); CALCIUM 8.6 MG/DL (8.5-10.1); CHLORIDE 101 MMOL/L (99-107); CREATININE 3.79 MG/DL (0.60-1.10); GLUCOSE 147 MG/DL (70-104); PHOSPHORUS 3.8 MG/DL (2.3-4.5); POTASSIUM 4.5 MMOL/L (3.5-5.1); SODIUM 140 MMOL/L (135-145); TOTAL CARBON DIOXIDE 33.8 MMOL/L (24-32); TOTAL PROTEIN 6.6 G/DL (6.4-8.2); eGFR 16 ML/MIN
[2022-08-09] MEDS: pyridoxine 50mg tablet PO SCH (07:55)
[2022-08-09] MEDS: thiamine 100mg tablet PO SCH (07:55)
[2022-08-09] MEDS: furosemide 40mg tablet PO SCH (07:56)
[2022-08-09] MEDS: heparin, porcine 5000 units/ml vial SQ SCH ×2 (08:00)
[2022-08-09] MEDS ORDERED: pregabalin 25mg capsule PO SCH (08:00)
[2022-08-09] MEDS ORDERED: pioglitazone 45mg tablet PO SCH (08:00)
[2022-08-09] MEDS ORDERED: losartan 50mg tablet PO SCH (08:00)
[2022-08-09] MEDS ORDERED: spironolactone 25 MG tablet PO SCH (08:00)
[2022-08-09] MEDS: docusate sod 100mg capsule PO SCH ×2 (08:00→08:01)
[2022-08-09] MEDS ORDERED: ESCITALOPRAM OXALATE 5 MG TABLET PO SCH (08:00)
[2022-08-09] MEDS ORDERED: pantoprazole 40mg Tablet.DR PO SCH (08:00)
[2022-08-09] MEDS ORDERED: HYDROchlorothiazide 12.5mg capsule PO SCH (08:00)
[2022-08-09 09:30] VITALS: BP 98/48
[2022-08-09 09:31] VITALS: BP 117/63
[2022-08-09 09:32] VITALS: BP 105/53
--- NOTE | 2022-08-09 09:45 | NUR ---
Per EMR pt with T2DM, well controlled with A1c 7.0%. DM education not warranted at this time. Will remain available. Addendum: 08/09/22 at [address] Amended: Links added.
[2022-08-09 10:00] VITALS: BP 98/47
== END 2022-08-09 14:30 | disposition home or self-care (01) | DRG 312 ==
LOC: ER 19:54 → ED HOLD 22:53 → ORTHO 4S 08-08 10:00
PROVIDERS: ADMIT Internal Medicine; ATTEND Family Medicine
PROC: 5A1D70Z Performance of Urinary Filtration, Intermittent, Less than 6 Hours Per Day (ICD-10-PCS; principal; 2022-08-08)
DX: R55 Syncope and collapse (principal); N18.6 End stage renal disease; G45.9 Transient cerebral ischemic attack, unspecified; I12.0 Hypertensive chronic kidney disease with stage 5 chronic kidney disease or end stage renal disease; E10.22 Type 1 diabetes mellitus with diabetic chronic kidney disease; E66.9 Obesity, unspecified; F32.A Depression, unspecified; G89.29 Other chronic pain; D63.8 Anemia in other chronic diseases classified elsewhere; E78.00 Pure hypercholesterolemia, unspecified; E10.40 Type 1 diabetes mellitus with diabetic neuropathy, unspecified; N40.0 Benign prostatic hyperplasia without lower urinary tract symptoms; Z87.891 Personal history of nicotine dependence; Z99.2 Dependence on renal dialysis; Z59.00 Homelessness unspecified; Z68.29 Body mass index [BMI] 29.0-29.9, adult; Z79.899 Other long term (current) drug therapy; Z79.82 Long term (current) use of aspirin
CPT/HCPCS: 36415; 70450; 71045; 80053; 81001; 82948; 83036; 83735; 83880; 84100; 84145; 84484; 85025; 87081; 90732; 93306; 93880; 99285; G0257; G0378; J1644; J7030; J8597

== ENCOUNTER 2022-12-10 12:42 | Outpatient (CLI) | payer MEDICARE, MEDICAID ==
[~2022-12-10 12:42] MED LIST changes: -ASPI-1265 PO; +ATOR10TA70 PO; -ATOR10TA87 PO; -BISA-78 PO; +ESCI-8 PO; +FURO80TA3 PO; -GABA-530 PO; -LOP25T PO; +METO5TAB98 PO; +OMEP40CA21 PO; +PHO667C PO; +PIOG45TA65 PO; +PREG25CA18 PO; +PYRI-3 PO; +SPIR25TA5 PO; +THIA100T66 PO
== END 2022-12-10 23:59 | disposition home or self-care (01) ==
LOC: RAD 12:42
PROVIDERS: ATTEND Internal Medicine Critical Care Medicine
DX: R13.12 Dysphagia, oropharyngeal phase (principal)
CPT/HCPCS: 74230

== ENCOUNTER 2024-01-24 19:00 | Inpatient (IN) | payer MEDICARE, MEDICAID ==
[~2024-01-24] VITALS: Ht 167.6 cm; Wt 89.5 kg
[~2024-01-24 19:00] MED LIST changes: -PREG25CA18 PO; +PREG25CA19 PO
[2024-01-24 19:27] LABS: BASOPHILS % (AUTO) 0.6 % (0-1); EOSINOPHILS # (AUTO) 0.1 X10'3 (0-0.9); EOSINOPHILS % (AUTO) 2.4 % (0-6); HEMATOCRIT 38.5 % (42.0-52.0); HEMOGLOBIN 12.3 g/dl (14.0-17.9); LYMPHOCYTES # (AUTO) 0.5 X10'3 (1.1-4.8); LYMPHOCYTES % (AUTO) 13.7 % (21-51); MEAN CORPUSCULAR HEMOGLOBIN 31.7 PG (27.0-31.0); MEAN CORPUSCULAR HGB CONC 31.9 g/dL (33.0-36.5); MEAN CORPUSCULAR VOLUME 99.2 FL (78-98); MEAN PLATELET VOLUME 7.8 FL (7.4-10.4); MONOCYTES # (AUTO) 0.5 X10'3 (0-0.9); MONOCYTES % (AUTO) 12.2 % (2-12); NEUTROPHILS # (AUTO) 2.7 X10'3 (1.8-7.7); NEUTROPHILS % (AUTO) 71.1 % (42-75); RED BLOOD COUNT 3.88 X10'6 (4.70-6.10); RED CELL DISTRIBUTION WIDTH 15.8 % (11.5-14.5); WHITE BLOOD COUNT 3.8 X10'3 (4.5-11.0)
[2024-01-24 19:39] LABS: ALANINE AMINOTRANSFERASE 21 U/L (12-78); ALBUMIN 3.2 G/DL (3.4-5.0); ALKALINE PHOSPHATASE 133 IU/L (46-116); ANION GAP 9 (8-16); ASPARTATE AMINO TRANSFERASE 43 U/L (10-37); BILIRUBIN,TOTAL 0.8 MG/DL (0.1-1.0); BLOOD UREA NITROGEN 38 MG/DL (7-18); BUN/CREATININE RATIO 7.5 (10.0-20.0); CALCIUM 8.9 MG/DL (8.5-10.1); CHLORIDE 100 MMOL/L (99-107); CREATININE 5.07 MG/DL (0.60-1.10); GLUCOSE 146 MG/DL (70-104); POTASSIUM 5.4 MMOL/L (3.5-5.1); SODIUM 139 MMOL/L (135-145); TOTAL CARBON DIOXIDE 30.5 MMOL/L (24-32); TOTAL PROTEIN 6.5 G/DL (6.4-8.2); eCRCL 11 ML/MIN; eGFR 11 ML/MIN
[2024-01-24 19:49] LABS: PRO BRAIN NATRIURETIC PEPTIDE > 30000 PG/ML (0-450)
[2024-01-24 20:02] LABS: PLATELET COUNT 77 X10'3 (140-440)
[2024-01-24] MEDS ORDERED: potassium Cl 20 mEq SR tablet PO PRN ×2 (22:25)
[2024-01-24] MEDS ORDERED: magnesium hydroxide 30ml (MOM) UD suspension PO PRN (22:25)
[2024-01-24] MEDS ORDERED: magnesium sulf-water 2g/50mL 50 ML IV PRN (22:25)
[2024-01-24] MEDS ORDERED: magnesium Cl slow-release 64mg tablet PO PRN (22:25)
[2024-01-24] MEDS ORDERED: magnesium sulf-water 4G/100mL 100 ML IV PRN (22:25)
[2024-01-24] MEDS ORDERED: ondansetron/PF 4mg/2ml inj IV PRN (22:25)
[2024-01-24] MEDS ORDERED: potassium Cl 40MEQ/1/2NS 520ml 520 ML IV PRN (22:25)
[2024-01-24] MEDS ORDERED: mag hydrox/Alum hydrox/simeth 30ml oral suspension PO PRN (22:25)
[2024-01-24] MEDS: acetaminophen 325mg tablet PO PRN (23:53)
[2024-01-25] VITALS (16 sets, daily range): BP systolic 111–159; BP diastolic 60–87; PULSE 79–91; RESP 14–21; TEMP 97.6–98.3; O2SAT 91–96
[2024-01-25] MEDS ORDERED: dextrose 50%-water 50ml dispensing syringe IV PRN ×2 (00:30)
[2024-01-25] MEDS ORDERED: DEXTROSE 15 GM of carb/4 tabs (each vial/BOTTLE has 4 tablets) PO PRN ×2 (00:30)
[2024-01-25] MEDS ORDERED: glucagon, human recombinant 1mg kit SUBCUT PRN (00:30)
[2024-01-25 05:38] LABS: BASOPHILS % (AUTO) 1.1 % (0-1); EOSINOPHILS # (AUTO) 0.1 X10'3 (0-0.9); EOSINOPHILS % (AUTO) 2.1 % (0-6); HEMATOCRIT 39.7 % (42.0-52.0); HEMOGLOBIN 12.9 g/dl (14.0-17.9); LYMPHOCYTES # (AUTO) 0.7 X10'3 (1.1-4.8); LYMPHOCYTES % (AUTO) 17.6 % (21-51); MEAN CORPUSCULAR HEMOGLOBIN 31.4 PG (27.0-31.0); MEAN CORPUSCULAR HGB CONC 32.4 g/dL (33.0-36.5); MEAN CORPUSCULAR VOLUME 96.7 FL (78-98); MEAN PLATELET VOLUME 8.2 FL (7.4-10.4); MONOCYTES # (AUTO) 0.5 X10'3 (0-0.9); MONOCYTES % (AUTO) 12.6 % (2-12); NEUTROPHILS # (AUTO) 2.7 X10'3 (1.8-7.7); NEUTROPHILS % (AUTO) 66.6 % (42-75); PLATELET COUNT 79 X10'3 (140-440); RED CELL DISTRIBUTION WIDTH 14.9 % (11.5-14.5)
[2024-01-25 05:48] LABS: ALANINE AMINOTRANSFERASE 25 U/L (12-78); ALBUMIN 3.4 G/DL (3.4-5.0); ALBUMIN/GLOBULIN RATIO 0.9 (1.1-1.5); ALKALINE PHOSPHATASE 117 IU/L (46-116); ANION GAP 7 (8-16); ASPARTATE AMINO TRANSFERASE 24 U/L (10-37); BILIRUBIN,TOTAL 0.9 MG/DL (0.1-1.0); BLOOD UREA NITROGEN 38 MG/DL (7-18); BUN/CREATININE RATIO 7.1 (10.0-20.0); CALCIUM 9.2 MG/DL (8.5-10.1); CHLORIDE 100 MMOL/L (99-107); CREATININE 5.36 MG/DL (0.60-1.10); GLUCOSE 126 MG/DL (70-104); MAGNESIUM 1.7 MG/DL (1.5-2.4); POTASSIUM 4.9 MMOL/L (3.5-5.1); SODIUM 139 MMOL/L (135-145); TOTAL CARBON DIOXIDE 31.9 MMOL/L (24-32); eCRCL 11 ML/MIN; eGFR 10 ML/MIN
--- NOTE | 2024-01-25 06:39 | NUR ---
Problems reprioritized. Patient report given, questions answered & plan of care reviewed with Roseann RN.
[2024-01-25] MEDS: INSULIN LISPRO 100 UNIT/ML INSULN.PEN MULTI-DOSE SQ SCH (07:00)
[2024-01-25] MEDS: docusate sod 100mg capsule PO SCH (07:48)
[2024-01-25] MEDS: thiamine 100mg tablet PO SCH (07:57)
[2024-01-25] MEDS: pantoprazole 40mg Tablet.DR PO SCH (07:58)
[2024-01-25] MEDS: losartan 50mg tablet PO SCH (07:59)
[2024-01-25] MEDS: calcium acetate 667mg (PhosLO) capsule PO SCH (08:00)
[2024-01-25] MEDS: atorvastatin 10mg tablet PO SCH (08:02)
[2024-01-25] MEDS: pregabalin 25mg capsule PO SCH (08:03)
[2024-01-25] MEDS: ESCITALOPRAM 10 mg tablet 10 MG TABLET PO SCH (08:03)
[2024-01-25] MEDS: K and/or MAG REPLACEMENT MC SCH (08:20)
[2024-01-25] MEDS ORDERED: INSULIN LISPRO 100 UNIT/ML INSULN.PEN MULTI-DOSE SQ SCH (09:00)
--- NOTE | 2024-01-25 09:42 | NUR ---
DM consult: Pt presents with an A1c of 7% this admit. A1c is well controlled for geriatric age thus diabetes nutrition education is not warranted at this time. Will continue to monitor and make recommendations as appropriate. Addendum: 01/25/24 at [address] Amended: Links added.
[2024-01-25] MEDS: heparin 1,000unit/ml 10ml vial 10 ML IV ONE (12:00)
[2024-01-25] MEDS: heparin 1,000 units/ml 10ml inj IV ONE (12:00)
[2024-01-25] MEDS: pyridoxine 50mg tablet PO SCH (12:21)
[2024-01-25] MEDS: heparin, porcine 5000 units/ml vial SQ SCH (12:22)
--- NOTE | 2024-01-25 18:12 | NUR ---
2 LITERS REMOVED VIA DIALYSIS.BREATH SOUNDS IMPROVED; HOWEVER, CRACKLES AT LT POSTERIOR BASE NOTED.PATIENT HAD MRI OF HEAD THIS SHIFT FOR CHANGE IN SPEECH, AND SHORT TERM MEMORY ISSUES.HOB UP CALL LIGHT IN REACH.NO C/O AT THIS TIME.
[2024-01-25] MEDS: insulin glargine (Lantus) pen - multi-dose SQ SCH (21:00)
[2024-01-25] MEDS: acetaminophen 325mg tablet PO ONE (23:29)
[2024-01-26] VITALS (7 sets, daily range): BP systolic 117–159; BP diastolic 56–80; PULSE 78–85; RESP 11–16; TEMP 96.7–98.3; O2SAT 92–95
--- NOTE | 2024-01-26 06:15 | NUR ---
Patient in room PCU 3025. I have received report from ZAIN Kim and had the opportunity to ask questions and assume patient care.
--- NOTE | 2024-01-26 06:30 | NUR ---
Problems reprioritized. Patient report given, questions answered & plan of care reviewed with ZAIN Lang.
[2024-01-26 07:10] LABS: BASOPHILS % (AUTO) 0.9 % (0-1); EOSINOPHILS # (AUTO) 0.1 X10'3 (0-0.9); EOSINOPHILS % (AUTO) 2.2 % (0-6); HEMATOCRIT 37.1 % (42.0-52.0); HEMOGLOBIN 12.1 g/dl (14.0-17.9); LYMPHOCYTES # (AUTO) 0.5 X10'3 (1.1-4.8); MEAN CORPUSCULAR HEMOGLOBIN 31.8 PG (27.0-31.0); MEAN CORPUSCULAR HGB CONC 32.6 g/dL (33.0-36.5); MEAN CORPUSCULAR VOLUME 97.4 FL (78-98); MEAN PLATELET VOLUME 8.7 FL (7.4-10.4); MONOCYTES # (AUTO) 0.6 X10'3 (0-0.9); MONOCYTES % (AUTO) 13.4 % (2-12); NEUTROPHILS % (AUTO) 72.5 % (42-75); PLATELET COUNT 87 X10'3 (140-440); RED BLOOD COUNT 3.81 X10'6 (4.70-6.10); RED CELL DISTRIBUTION WIDTH 15.1 % (11.5-14.5); WHITE BLOOD COUNT 4.2 X10'3 (4.5-11.0)
[2024-01-26 07:49] LABS: ALANINE AMINOTRANSFERASE 22 U/L (12-78); ALBUMIN 3.2 G/DL (3.4-5.0); ALBUMIN/GLOBULIN RATIO 0.9 (1.1-1.5); ALKALINE PHOSPHATASE 109 IU/L (46-116); ANION GAP 7 (8-16); ASPARTATE AMINO TRANSFERASE 24 U/L (10-37); BILIRUBIN,TOTAL 0.9 MG/DL (0.1-1.0); BLOOD UREA NITROGEN 29 MG/DL (7-18); BUN/CREATININE RATIO 6.6 (10.0-20.0); CALCIUM 9.4 MG/DL (8.5-10.1); CHLORIDE 101 MMOL/L (99-107); CREATININE 4.39 MG/DL (0.60-1.10); GLUCOSE 133 MG/DL (70-104); POTASSIUM 4.8 MMOL/L (3.5-5.1); SODIUM 138 MMOL/L (135-145); TOTAL CARBON DIOXIDE 29.8 MMOL/L (24-32); TOTAL PROTEIN 6.7 G/DL (6.4-8.2); eCRCL 13 ML/MIN; eGFR 13 ML/MIN
[2024-01-26] MEDS: spironolactone 25 MG tablet PO SCH (08:00)
--- NOTE | 2024-01-26 18:34 | NUR ---
Problems reprioritized. Patient report given, questions answered & plan of care reviewed with ZAIN Brumfield.
[2024-01-27] VITALS (11 sets, daily range): BP systolic 107–130; BP diastolic 58–77; PULSE 67–90; RESP 14–18; TEMP 97.2–98.2; O2SAT 93–97
--- NOTE | 2024-01-27 03:20 | NUR ---
Reviewed and agree with Octaviano FRENCH's assessment
[2024-01-27 06:25] LABS: EOSINOPHILS # (AUTO) 0.1 X10'3 (0-0.9); EOSINOPHILS % (AUTO) 2.8 % (0-6); HEMATOCRIT 36.2 % (42.0-52.0); HEMOGLOBIN 11.5 g/dl (14.0-17.9); LYMPHOCYTES # (AUTO) 0.5 X10'3 (1.1-4.8); LYMPHOCYTES % (AUTO) 11.5 % (21-51); MEAN CORPUSCULAR HEMOGLOBIN 31.2 PG (27.0-31.0); MEAN CORPUSCULAR HGB CONC 31.8 g/dL (33.0-36.5); MEAN CORPUSCULAR VOLUME 98.1 FL (78-98); MEAN PLATELET VOLUME 7.7 FL (7.4-10.4); MONOCYTES # (AUTO) 0.6 X10'3 (0-0.9); MONOCYTES % (AUTO) 13.3 % (2-12); NEUTROPHILS # (AUTO) 3.2 X10'3 (1.8-7.7); NEUTROPHILS % (AUTO) 71.4 % (42-75); PLATELET COUNT 85 X10'3 (140-440); RED BLOOD COUNT 3.69 X10'6 (4.70-6.10); RED CELL DISTRIBUTION WIDTH 15.3 % (11.5-14.5); WHITE BLOOD COUNT 4.4 X10'3 (4.5-11.0)
[2024-01-27 06:53] LABS: ALANINE AMINOTRANSFERASE 22 U/L (12-78); ALBUMIN 3.1 G/DL (3.4-5.0); ALBUMIN/GLOBULIN RATIO 0.9 (1.1-1.5); ALKALINE PHOSPHATASE 100 IU/L (46-116); ANION GAP 3 (8-16); ASPARTATE AMINO TRANSFERASE 23 U/L (10-37); BILIRUBIN,TOTAL 0.8 MG/DL (0.1-1.0); BLOOD UREA NITROGEN 43 MG/DL (7-18); BUN/CREATININE RATIO 8.1 (10.0-20.0); CALCIUM 9.1 MG/DL (8.5-10.1); CHLORIDE 102 MMOL/L (99-107); CREATININE 5.28 MG/DL (0.60-1.10); GLUCOSE 140 MG/DL (70-104); MAGNESIUM 1.8 MG/DL (1.5-2.4); POTASSIUM 4.6 MMOL/L (3.5-5.1); SODIUM 137 MMOL/L (135-145); TOTAL CARBON DIOXIDE 31.6 MMOL/L (24-32); TOTAL PROTEIN 6.4 G/DL (6.4-8.2); eCRCL 11 ML/MIN; eGFR 11 ML/MIN
[2024-01-27] MEDS: EPOETIN ALFA-EPBX 20,000 UNIT/ML 1 ML MDV IV ONE (09:54)
[2024-01-27] MEDS: heparin 1,000 units/ml 10ml inj IV ONE ×2 (10:37)
[2024-01-27] MEDS: heparin 1,000 units/ml 10ml inj HE ONE ×2 (10:38→10:39)
--- NOTE | 2024-01-27 12:19 | NUR ---
Dr Quarles at bedside.
[2024-01-28 05:24] LABS: HBSAG SCREEN Negative (Negative)
== END 2024-01-27 16:05 | disposition home or self-care (01) | DRG 640 ==
LOC: ER 19:00 → ED HOLD 22:31 → PCU 3S 01-25 01:01
PROVIDERS: ADMIT Surgery Surgical Critical Care; ATTEND Internal Medicine
PROC: 5A1D70Z Performance of Urinary Filtration, Intermittent, Less than 6 Hours Per Day (ICD-10-PCS; principal; 2024-01-25)
DX: E87.5 Hyperkalemia (principal); G93.41 Metabolic encephalopathy; N18.6 End stage renal disease; J81.0 Acute pulmonary edema; I12.0 Hypertensive chronic kidney disease with stage 5 chronic kidney disease or end stage renal disease; Z59.00 Homelessness unspecified; E11.22 Type 2 diabetes mellitus with diabetic chronic kidney disease; E78.00 Pure hypercholesterolemia, unspecified; N40.0 Benign prostatic hyperplasia without lower urinary tract symptoms; F32.A Depression, unspecified; G89.29 Other chronic pain; F41.9 Anxiety disorder, unspecified; K21.9 Gastro-esophageal reflux disease without esophagitis; E11.42 Type 2 diabetes mellitus with diabetic polyneuropathy; Z79.899 Other long term (current) drug therapy; Z91.158 Patient's noncompliance with renal dialysis for other reason
CPT/HCPCS: 36415; 70551; 71045; 80053; 82948; 83036; 83735; 83880; 84484; 85025; 87081; 87340; 93005; 93306; 93880; 97110; 97116; 97161; 99285; A6449; E1594; G0257; G0378; J1644; J7030; J8597

== ENCOUNTER 2024-06-28 16:58 | Emergency (ER) | payer MEDICARE, MEDICAID ==
[~2024-06-28] VITALS: Ht 175.3 cm; Wt 86.0 kg
[~2024-06-28 16:58] MED LIST changes: -FURO80TA3 PO; -PREG25CA19 PO
[2024-06-28 18:48] LABS: BASOPHILS % (AUTO) 0.8 % (0-1); EOSINOPHILS # (AUTO) 0.1 X10'3 (0-0.9); EOSINOPHILS % (AUTO) 1.9 % (0-6); HEMOGLOBIN 12.9 g/dl (14.0-17.9); LYMPHOCYTES # (AUTO) 0.4 X10'3 (1.1-4.8); LYMPHOCYTES % (AUTO) 8.1 % (21-51); MEAN CORPUSCULAR HEMOGLOBIN 32.2 PG (27.0-31.0); MEAN CORPUSCULAR VOLUME 97.6 FL (78-98); MEAN PLATELET VOLUME 7.6 FL (7.4-10.4); MONOCYTES # (AUTO) 0.4 X10'3 (0-0.9); MONOCYTES % (AUTO) 8.9 % (2-12); NEUTROPHILS # (AUTO) 3.6 X10'3 (1.8-7.7); NEUTROPHILS % (AUTO) 80.3 % (42-75); RED BLOOD COUNT 3.99 X10'6 (4.70-6.10); RED CELL DISTRIBUTION WIDTH 16.2 % (11.5-14.5); WHITE BLOOD COUNT 4.4 X10'3 (4.5-11.0)
[2024-06-28 19:04] LABS: ALANINE AMINOTRANSFERASE 12 U/L (12-78); ALBUMIN 3.1 G/DL (3.4-5.0); ALBUMIN/GLOBULIN RATIO 0.7 (1.1-1.5); ALKALINE PHOSPHATASE 194 IU/L (46-116); ANION GAP 7 (8-16); ASPARTATE AMINO TRANSFERASE 29 U/L (10-37); BILIRUBIN,TOTAL 1.3 MG/DL (0.1-1.0); BLOOD UREA NITROGEN 26 MG/DL (7-18); BUN/CREATININE RATIO 6.1 (10.0-20.0); CALCIUM 8.7 MG/DL (8.5-10.1); CHLORIDE 96 MMOL/L (99-107); CREATININE 4.27 MG/DL (0.60-1.10); GLUCOSE 123 MG/DL (70-104); LIPASE 38 U/L (16-77); POTASSIUM 3.5 MMOL/L (3.5-5.1); SODIUM 136 MMOL/L (135-145); TOTAL CARBON DIOXIDE 33.3 MMOL/L (24-32); TOTAL PROTEIN 7.3 G/DL (6.4-8.2); eCRCL 14 ML/MIN; eGFR 14 ML/MIN
[2024-06-28 19:39] LABS: PLATELET COUNT 86 X10'3 (140-440)
[2024-06-28 21:40] VITALS: BP 121/67; PULSE 90; RESP 16; TEMP 97.6; O2SAT 97
== END 2024-06-29 00:32 | disposition left against medical advice (07) ==
LOC: ER 16:58
DX: K92.0 Hematemesis (principal); Z53.21 Procedure and treatment not carried out due to patient leaving prior to being seen by health care provider
CPT/HCPCS: 80053; 83690; 85025

== ENCOUNTER 2024-07-29 20:11 | Inpatient (IN) | payer MEDICARE, MEDICAID ==
[~2024-07-29] VITALS: Ht 162.6 cm; Wt 85.5 kg
[2024-07-29 21:25] LABS: APTT 29 SECONDS (22-32); BASOPHILS % (AUTO) 0.6 % (0-1); EOSINOPHILS % (AUTO) 0.3 % (0-6); HEMATOCRIT 43.5 % (42.0-52.0); HEMOGLOBIN 14.3 g/dl (14.0-17.9); INR 1.3 INR; LYMPHOCYTES # (AUTO) 0.2 X10'3 (1.1-4.8); LYMPHOCYTES % (AUTO) 3.7 % (21-51); MEAN CORPUSCULAR HEMOGLOBIN 32.3 PG (27.0-31.0); MEAN CORPUSCULAR HGB CONC 32.8 g/dL (33.0-36.5); MEAN CORPUSCULAR VOLUME 98.5 FL (78-98); MEAN PLATELET VOLUME 8.7 FL (7.4-10.4); MONOCYTES # (AUTO) 0.5 X10'3 (0-0.9); MONOCYTES % (AUTO) 9.3 % (2-12); NEUTROPHILS # (AUTO) 4.8 X10'3 (1.8-7.7); NEUTROPHILS % (AUTO) 86.1 % (42-75); PLATELET COUNT 64 X10'3 (140-440); RED BLOOD COUNT 4.42 X10'6 (4.70-6.10); RED CELL DISTRIBUTION WIDTH 16.3 % (11.5-14.5); WHITE BLOOD COUNT 5.6 X10'3 (4.5-11.0)
[2024-07-29 21:36] LABS: ALANINE AMINOTRANSFERASE 22 U/L (12-78); ALBUMIN/GLOBULIN RATIO 0.8 (1.1-1.5); ALKALINE PHOSPHATASE 139 IU/L (46-116); ANION GAP 8 (8-16); ASPARTATE AMINO TRANSFERASE 38 U/L (10-37); BILIRUBIN,TOTAL 2.3 MG/DL (0.1-1.0); BLOOD UREA NITROGEN 24 MG/DL (7-18); CALCIUM 9.6 MG/DL (8.5-10.1); CHLORIDE 99 MMOL/L (99-107); CREATININE 3.97 MG/DL (0.60-1.10); GLUCOSE 117 MG/DL (70-104); MAGNESIUM 1.8 MG/DL (1.5-2.4); PHOSPHORUS 3.3 MG/DL (2.3-4.5); POTASSIUM 3.2 MMOL/L (3.5-5.1); SODIUM 138 MMOL/L (135-145); TOTAL CARBON DIOXIDE 30.7 MMOL/L (24-32); TOTAL PROTEIN 6.7 G/DL (6.4-8.2); eCRCL 13 ML/MIN; eGFR 15 ML/MIN
[2024-07-29 21:46] LABS: ANISOCYTOSIS 1+; PLATELET ESTIMATE DECREASED
[2024-07-29 22:01] LABS: PRO BRAIN NATRIURETIC PEPTIDE > 30000 PG/ML (0-450)
[2024-07-29] MEDS: normal saline 1000ml 1,000 ML IV ONE (22:06)
[2024-07-30] MEDS ORDERED: morphine 2 MG/ML inj. syringe IV PRN (02:00)
[2024-07-30] MEDS ORDERED: potassium Cl 40MEQ/1/2NS 520ml 520 ML IV PRN (02:00)
[2024-07-30] MEDS ORDERED: mag hydrox/Alum hydrox/simeth 30ml oral suspension PO PRN (02:00)
[2024-07-30] MEDS ORDERED: magnesium Cl slow-release 64mg tablet PO PRN (02:00)
[2024-07-30] MEDS ORDERED: ondansetron/PF 4mg/2ml inj IV PRN (02:00)
[2024-07-30] MEDS ORDERED: magnesium sulf-water 4G/100mL 100 ML IV PRN (02:00)
[2024-07-30] MEDS ORDERED: acetaminophen 325mg tablet PO PRN ×2 (02:00)
[2024-07-30] MEDS ORDERED: magnesium sulf-water 2g/50mL 50 ML IV PRN (02:00)
[2024-07-30] MEDS ORDERED: magnesium hydroxide 30ml (MOM) UD suspension PO PRN (02:00)
[2024-07-30] MEDS: aspirin 81mg tab.chew PO SCH (02:15)
[2024-07-30] MEDS: atorvastatin 20mg tablet PO SCH (02:15)
[2024-07-30 03:16] LABS: HEMOGLOBIN A1C 6.4 % (4.5-6.2)
[2024-07-30 03:17] LABS: APTT 29 SECONDS (22-32); INR 1.3 INR; PROTHROMBIN TIME 12.9 SECONDS (9.0-12.0)
[2024-07-30 03:18] LABS: MAGNESIUM 1.9 MG/DL (1.5-2.4); PHOSPHORUS 3.7 MG/DL (2.3-4.5); POTASSIUM 3.2 MMOL/L (3.5-5.1)
[2024-07-30 07:18] LABS: EOSINOPHILS % (AUTO) 0.4 % (0-6); HEMOGLOBIN 14.2 g/dl (14.0-17.9); MONOCYTES # (AUTO) 0.5 X10'3 (0-0.9)
[2024-07-30 07:20] LABS: HEMATOCRIT 43.1 % (42.0-52.0); LYMPHOCYTES # (AUTO) 0.5 X10'3 (1.1-4.8); LYMPHOCYTES % (AUTO) 10.6 % (21-51); MEAN CORPUSCULAR HEMOGLOBIN 32.2 PG (27.0-31.0); MEAN CORPUSCULAR HGB CONC 32.9 g/dL (33.0-36.5); MEAN CORPUSCULAR VOLUME 97.7 FL (78-98); MEAN PLATELET VOLUME 8.6 FL (7.4-10.4); MONOCYTES % (AUTO) 11.6 % (2-12); NEUTROPHILS # (AUTO) 3.4 X10'3 (1.8-7.7); NEUTROPHILS % (AUTO) 76.4 % (42-75); PLATELET COUNT 61 X10'3 (140-440); RED BLOOD COUNT 4.41 X10'6 (4.70-6.10); RED CELL DISTRIBUTION WIDTH 16.5 % (11.5-14.5); WHITE BLOOD COUNT 4.5 X10'3 (4.5-11.0)
[2024-07-30 07:38] LABS: ALANINE AMINOTRANSFERASE 20 U/L (12-78); ALBUMIN 2.9 G/DL (3.4-5.0); ALBUMIN/GLOBULIN RATIO 0.8 (1.1-1.5); ALKALINE PHOSPHATASE 140 IU/L (46-116); ANION GAP 9 (8-16); ASPARTATE AMINO TRANSFERASE 45 U/L (10-37); BILIRUBIN,TOTAL 2.4 MG/DL (0.1-1.0); BLOOD UREA NITROGEN 26 MG/DL (7-18); BUN/CREATININE RATIO 6.4 (10.0-20.0); CALCIUM 9.3 MG/DL (8.5-10.1); CHLORIDE 100 MMOL/L (99-107); CREATININE 4.07 MG/DL (0.60-1.10); GLUCOSE 89 MG/DL (70-104); POTASSIUM 3.3 MMOL/L (3.5-5.1); SODIUM 139 MMOL/L (135-145); TOTAL CARBON DIOXIDE 30.3 MMOL/L (24-32); TOTAL PROTEIN 6.6 G/DL (6.4-8.2); eCRCL 13 ML/MIN; eGFR 14 ML/MIN
[2024-07-30] MEDS ORDERED: atorvastatin 10mg tablet PO SCH (08:00)
[2024-07-30] MEDS: HYDROchlorothiazide 12.5mg capsule PO SCH (08:00)
[2024-07-30] MEDS: losartan 50mg tablet PO SCH (08:00)
[2024-07-30] MEDS: calcium acetate 667mg (PhosLO) capsule PO SCH (08:25)
[2024-07-30] MEDS: pantoprazole 40mg Tablet.DR PO SCH (08:26)
[2024-07-30] MEDS: thiamine 100mg tablet PO SCH (08:26)
[2024-07-30] MEDS: docusate sod 100mg capsule PO SCH (08:26)
[2024-07-30] MEDS: pyridoxine 50mg tablet PO SCH (08:26)
[2024-07-30] MEDS: heparin, porcine 5000 units/ml vial SQ SCH (08:27)
[2024-07-30] MEDS: ESCITALOPRAM 10 mg tablet 10 MG TABLET PO SCH (08:28)
[2024-07-30] MEDS: potassium Cl 20 mEq SR tablet PO PRN (08:28)
[2024-07-30] MEDS: K and/or MAG REPLACEMENT MC SCH (08:31)
[2024-07-30 13:45] VITALS: BP 119/69; PULSE 89; RESP 19; O2SAT 95
[2024-07-30 13:50] VITALS: RESP 19; O2SAT 95
[2024-07-30 18:00] VITALS: BP 117/67; PULSE 88; RESP 14; TEMP 97.6; O2SAT 93
[2024-07-30 20:00] VITALS: RESP 14; O2SAT 93
[2024-07-30 22:00] VITALS: BP 125/66; PULSE 88; RESP 20; TEMP 98.8; O2SAT 95
[2024-07-31] VITALS (12 sets, daily range): BP systolic 99–126; BP diastolic 60–93; PULSE 72–90; RESP 16–21; TEMP 97.1–99; O2SAT 92–100
[2024-07-31 06:10] LABS: EOSINOPHILS # (AUTO) 0.1 X10'3 (0-0.9); HEMOGLOBIN 13.4 g/dl (14.0-17.9); LYMPHOCYTES # (AUTO) 0.5 X10'3 (1.1-4.8); MEAN PLATELET VOLUME 8.5 FL (7.4-10.4); MONOCYTES # (AUTO) 0.5 X10'3 (0-0.9); NEUTROPHILS # (AUTO) 2.9 X10'3 (1.8-7.7)
[2024-07-31 06:11] LABS: BASOPHILS % (AUTO) 0.9 % (0-1); EOSINOPHILS % (AUTO) 1.3 % (0-6); HEMATOCRIT 40.8 % (42.0-52.0); LYMPHOCYTES % (AUTO) 11.9 % (21-51); MEAN CORPUSCULAR HEMOGLOBIN 32.3 PG (27.0-31.0); MEAN CORPUSCULAR HGB CONC 32.9 g/dL (33.0-36.5); MEAN CORPUSCULAR VOLUME 98.1 FL (78-98); MONOCYTES % (AUTO) 13.2 % (2-12); NEUTROPHILS % (AUTO) 72.7 % (42-75); PLATELET COUNT 63 X10'3 (140-440); RED BLOOD COUNT 4.16 X10'6 (4.70-6.10); RED CELL DISTRIBUTION WIDTH 16.8 % (11.5-14.5)
[2024-07-31 06:26] LABS: ALANINE AMINOTRANSFERASE 25 U/L (12-78); ALBUMIN 2.9 G/DL (3.4-5.0); ALBUMIN/GLOBULIN RATIO 0.8 (1.1-1.5); ALKALINE PHOSPHATASE 129 IU/L (46-116); ANION GAP 9 (8-16); ASPARTATE AMINO TRANSFERASE 47 U/L (10-37); BILIRUBIN,TOTAL 1.7 MG/DL (0.1-1.0); BLOOD UREA NITROGEN 31 MG/DL (7-18); BUN/CREATININE RATIO 6.7 (10.0-20.0); CALCIUM 9.8 MG/DL (8.5-10.1); CHLORIDE 100 MMOL/L (99-107); CHOLESTEROL 116 MG/DL (0-200); GLUCOSE 117 MG/DL (70-104); HDL CHOLESTEROL 58 MG/DL (35-60); LDL CHOLESTEROL 49 MG/DL (50-100); POTASSIUM 3.3 MMOL/L (3.5-5.1); SODIUM 139 MMOL/L (135-145); TOTAL CARBON DIOXIDE 29.6 MMOL/L (24-32); TOTAL PROTEIN 6.5 G/DL (6.4-8.2); TRIGLYCERIDES 88 MG/DL (20-135); eCRCL 11 ML/MIN; eGFR 12 ML/MIN
[2024-07-31] MEDS: MESSAGE TO NURSING IV ONE (07:00)
[2024-07-31] MEDS: LIDOcaine 1% (10mg/ml) 2ml vial SQ ONE (08:00)
[2024-07-31] MEDS: atorvastatin 20mg tablet PO SCH (09:16)
[2024-07-31] MEDS: potassium Cl 20 mEq SR tablet PO PRN (09:18)
[2024-07-31] MEDS ORDERED: dextrose 50%-water 50ml dispensing syringe IV PRN ×2 (10:45)
[2024-07-31] MEDS ORDERED: glucagon, human recombinant 1mg kit SUBCUT PRN (10:45)
[2024-07-31] MEDS ORDERED: DEXTROSE 15 GM of carb/4 tabs (each vial/BOTTLE has 4 tablets) PO PRN ×2 (10:45)
[2024-07-31] MEDS: INSULIN LISPRO 100 UNIT/ML INSULN.PEN MULTI-DOSE SQ SCH (12:00)
[2024-07-31] MEDS ORDERED: ATOR20TA66 PO (16:36)
[2024-07-31] MEDS ORDERED: LOSA50TA64 PO (16:36)
[2024-07-31] MEDS ORDERED: ASPI81TA53 PO (16:36)
[2024-07-31] MEDS: heparin 1,000 units/ml 10ml inj IV ONE (18:35)
[2024-07-31] MEDS: heparin 1,000unit/ml 10ml vial 10 ML IV ONE (18:36)
[2024-07-31] MEDS: carVEDilol 3.125mg tablet PO SCH (22:20)
[2024-08-01 06:00] VITALS: BP 126/62; PULSE 100; RESP 18; TEMP 97.6; O2SAT 91
[2024-08-01 06:31] LABS: EOSINOPHILS # (AUTO) 0.1 X10'3 (0-0.9); HEMATOCRIT 40.7 % (42.0-52.0); HEMOGLOBIN 13.1 g/dl (14.0-17.9); LYMPHOCYTES # (AUTO) 0.4 X10'3 (1.1-4.8); MEAN CORPUSCULAR HGB CONC 32.1 g/dL (33.0-36.5); MONOCYTES # (AUTO) 0.5 X10'3 (0-0.9); NEUTROPHILS # (AUTO) 2.5 X10'3 (1.8-7.7); RED CELL DISTRIBUTION WIDTH 16.8 % (11.5-14.5)
[2024-08-01 06:33] LABS: BASOPHILS % (AUTO) 1.3 % (0-1); EOSINOPHILS % (AUTO) 2.4 % (0-6); LYMPHOCYTES % (AUTO) 11.8 % (21-51); MEAN CORPUSCULAR HEMOGLOBIN 31.9 PG (27.0-31.0); MEAN CORPUSCULAR VOLUME 99.3 FL (78-98); MEAN PLATELET VOLUME 8.6 FL (7.4-10.4); MONOCYTES % (AUTO) 13.2 % (2-12); NEUTROPHILS % (AUTO) 71.3 % (42-75); PLATELET COUNT 61 X10'3 (140-440); RED BLOOD COUNT 4.09 X10'6 (4.70-6.10); WHITE BLOOD COUNT 3.5 X10'3 (4.5-11.0)
[2024-08-01 06:41] LABS: ALANINE AMINOTRANSFERASE 26 U/L (12-78); ALBUMIN 2.8 G/DL (3.4-5.0); ALBUMIN/GLOBULIN RATIO 0.8 (1.1-1.5); ALKALINE PHOSPHATASE 119 IU/L (46-116); ANION GAP 7 (8-16); ASPARTATE AMINO TRANSFERASE 41 U/L (10-37); BILIRUBIN,TOTAL 1.6 MG/DL (0.1-1.0); BLOOD UREA NITROGEN 20 MG/DL (7-18); BUN/CREATININE RATIO 5.7 (10.0-20.0); CALCIUM 9.3 MG/DL (8.5-10.1); CHLORIDE 106 MMOL/L (99-107); CREATININE 3.51 MG/DL (0.60-1.10); GLUCOSE 105 MG/DL (70-104); POTASSIUM 4.2 MMOL/L (3.5-5.1); SODIUM 143 MMOL/L (135-145); TOTAL CARBON DIOXIDE 29.9 MMOL/L (24-32); TOTAL PROTEIN 6.1 G/DL (6.4-8.2); eCRCL 15 ML/MIN; eGFR 17 ML/MIN
[2024-08-01 08:59] VITALS: RESP 16
[2024-08-01 10:00] VITALS: BP 122/64; PULSE 74; RESP 23; TEMP 97.1; O2SAT 91
[2024-08-01 11:13] LABS: PHOSPHORUS 3.3 MG/DL (2.3-4.5); THYROID STIMULATING HORMONE 1.34 ulU/ml (0.34-4.50)
[2024-08-01 18:00] VITALS: BP 118/62; PULSE 86; RESP 21; TEMP 97; O2SAT 92
[2024-08-01 20:00] VITALS: BP_SYST 115; BP_SYST 124; BP_DIAS 53; BP_DIAS 64; PULSE 70; PULSE 72; PULSE 73; PULSE 84
[2024-08-01 22:00] VITALS: BP 124/64; PULSE 72; RESP 18; TEMP 97.5; O2SAT 93
[2024-08-02 06:00] VITALS: BP 128/53; PULSE 71; RESP 18; TEMP 97.4; O2SAT 96
[2024-08-02 06:32] LABS: BASOPHILS % (AUTO) 0.6 % (0-1); EOSINOPHILS # (AUTO) 0.1 X10'3 (0-0.9); EOSINOPHILS % (AUTO) 2.1 % (0-6); HEMATOCRIT 41.2 % (42.0-52.0); HEMOGLOBIN 13.4 g/dl (14.0-17.9); LYMPHOCYTES # (AUTO) 0.5 X10'3 (1.1-4.8); LYMPHOCYTES % (AUTO) 11.9 % (21-51); MEAN CORPUSCULAR HEMOGLOBIN 32.4 PG (27.0-31.0); MEAN CORPUSCULAR HGB CONC 32.6 g/dL (33.0-36.5); MEAN CORPUSCULAR VOLUME 99.3 FL (78-98); MEAN PLATELET VOLUME 8.6 FL (7.4-10.4); MONOCYTES # (AUTO) 0.5 X10'3 (0-0.9); MONOCYTES % (AUTO) 12.5 % (2-12); NEUTROPHILS % (AUTO) 72.9 % (42-75); PLATELET COUNT 51 X10'3 (140-440); RED BLOOD COUNT 4.15 X10'6 (4.70-6.10); RED CELL DISTRIBUTION WIDTH 16.8 % (11.5-14.5); WHITE BLOOD COUNT 4.1 X10'3 (4.5-11.0)
[2024-08-02 07:23] LABS: ALANINE AMINOTRANSFERASE 26 U/L (12-78); ALBUMIN 2.7 G/DL (3.4-5.0); ALBUMIN/GLOBULIN RATIO 0.8 (1.1-1.5); ALKALINE PHOSPHATASE 116 IU/L (46-116); ANION GAP 11 (8-16); ASPARTATE AMINO TRANSFERASE 36 U/L (10-37); BILIRUBIN,TOTAL 1.4 MG/DL (0.1-1.0); BLOOD UREA NITROGEN 27 MG/DL (7-18); BUN/CREATININE RATIO 9.3 (10.0-20.0); CALCIUM 9.3 MG/DL (8.5-10.1); CHLORIDE 105 MMOL/L (99-107); GLUCOSE 100 MG/DL (70-104); POTASSIUM 4.5 MMOL/L (3.5-5.1); SODIUM 142 MMOL/L (135-145); TOTAL CARBON DIOXIDE 26.5 MMOL/L (24-32); TOTAL PROTEIN 6.3 G/DL (6.4-8.2); eCRCL 18 ML/MIN; eGFR 21 ML/MIN
[2024-08-02 07:30] VITALS: BP 118/49; PULSE 70; RESP 12; TEMP 97.7; O2SAT 91
[2024-08-02 08:00] VITALS: BP_SYST 100; BP_SYST 109; BP_SYST 90; BP_DIAS 48; BP_DIAS 52; BP_DIAS 58; PULSE 69; PULSE 71; PULSE 73
[2024-08-02] MEDS: losartan 50mg tablet PO SCH (08:00)
[2024-08-02 09:27] LABS: BILIRUBIN,URINE SMALL (Neg); CLARITY,URINE SLIGHTLY CLOUDY (Clear); GLUCOSE, URINE NEGATIVE (Neg); KETONES,URINE TRACE mg/dl (Neg); LEUKOCYTE ESTERASE ,URINE NEGATIVE (Neg); NITRITES, URINE NEGATIVE (Neg); OCCULT BLOOD,URINE TRACE-INTACT (Neg); PH,URINE 5.5 (4.8-8.0); PROTEIN,URINE 100 mg/dl (Neg)
[2024-08-02 09:47] VITALS: O2SAT 94
[2024-08-02 09:51] LABS: UA COLLECTION TYPE NON-SPECIFIED
[2024-08-02 09:52] LABS: COLOR,URINE DARK YELLOW (Yellow)
[2024-08-02 09:53] LABS: BACTERIA,URINE 1+ /HPF (Neg); MUCUS STRANDS FEW /LPF (Neg); RBC,URINE 0-2 /HPF (0-2); SQUAMOUS EPITHELIAL CELL,UR FEW /LPF (FEW)
[2024-08-02 09:54] LABS: AMORPHOUS URATES 1+; COARSE GRANULAR CAST 0-3 /LPF (NEGATIVE)
[2024-08-02 09:55] LABS: APTT 28 SECONDS (22-32); INR 1.3 INR
[2024-08-02 09:58] LABS: PROTHROMBIN TIME 13.1 SECONDS (9.0-12.0)
[2024-08-02 10:00] VITALS: BP 101/64; PULSE 69; RESP 18; TEMP 97.9; O2SAT 94
[2024-08-02 10:22] LABS: URINE AMPHETAMINE SCREEN NEGATIVE (Neg); URINE BARBITUATE SCREEN NEGATIVE (Neg); URINE BENZODIAZEPINES SCREEN NEGATIVE (Neg); URINE CANNABINOID SCREEN NEGATIVE (Neg); URINE COCAINE SCREEN NEGATIVE (Neg); URINE METHADONE SCREEN NEGATIVE (Neg); URINE OPIATE SCREEN NEGATIVE (Neg); URINE PHENCYCLIDINE SCREEN NEGATIVE (Neg)
[2024-08-02 15:30] VITALS: BP 117/60; PULSE 68; RESP 14; TEMP 97.4; O2SAT 90
[2024-08-03 05:17] LABS: HBSAG SCREEN Negative (Negative)
== END 2024-08-02 16:40 | DRG 280 ==
LOC: ER 20:12 → ED HOLD 07-30 01:25 → ORTHO 4S 07-30 13:45
PROVIDERS: ADMIT Internal Medicine Critical Care Medicine; ATTEND Family Medicine
PROC: 5A1D70Z Performance of Urinary Filtration, Intermittent, Less than 6 Hours Per Day (ICD-10-PCS; principal; 2024-07-31)
DX: I95.1 Orthostatic hypotension (principal); N18.6 End stage renal disease; I21.A1 Myocardial infarction type 2; E87.4 Mixed disorder of acid-base balance; N25.81 Secondary hyperparathyroidism of renal origin; I13.2 Hypertensive heart and chronic kidney disease with heart failure and with stage 5 chronic kidney disease, or end stage renal disease; I50.22 Chronic systolic (congestive) heart failure; K74.60 Unspecified cirrhosis of liver; K80.20 Calculus of gallbladder without cholecystitis without obstruction; E78.00 Pure hypercholesterolemia, unspecified; E11.22 Type 2 diabetes mellitus with diabetic chronic kidney disease; N40.0 Benign prostatic hyperplasia without lower urinary tract symptoms; F32.A Depression, unspecified; G89.29 Other chronic pain; D63.1 Anemia in chronic kidney disease; E55.9 Vitamin D deficiency, unspecified; K21.9 Gastro-esophageal reflux disease without esophagitis; D69.6 Thrombocytopenia, unspecified; E80.6 Other disorders of bilirubin metabolism; I65.21 Occlusion and stenosis of right carotid artery; Z99.2 Dependence on renal dialysis; Z81.8 Family history of other mental and behavioral disorders; Z86.73 Personal history of transient ischemic attack (TIA), and cerebral infarction without residual deficits; Z90.49 Acquired absence of other specified parts of digestive tract
CPT/HCPCS: 36415; 70450; 70547; 70552; 71045; 74176; 76700; 80053; 80061; 80305; 81001; 82140; 82948; 83605; 83735; 83880; 84100; 84132; 84145; 84443; 84484; 85008; 85025; 85610; 85651; 85730; 87081; 87088; 87340; 92508; 92616; 93005; 93306; 93880; 97110; 97116; 97161; 97530; 99285; A4615; E1594; G0257; G0378; J1644; J1815; J7030